=== PATIENT | female | born 1950 | race African-American/Black ===

== ENCOUNTER 2017-05-13 11:01 | Emergency (ER) | payer OTHER, MEDICAID ==
[~2017-05-13 11:01] MED LIST: ALLO300T2 PO; ASPI81TA45 PO; CRES10TA PO; GABA100C4 PO; LORTA5 PO; METH750T2 PO; METO50TA PO; MOBI15TA PO; NORV10TA PO
[2017-05-13 11:04] VITALS: BP 205/81; PULSE 96; RESP 16; TEMP 98.3; O2SAT 98
--- NOTE | 2017-05-13 11:26 | PD ---
HPI Chief Complaint: Flank/Kidney Pain Time Seen by Provider: 11:26 Travel History International Travel<30 days: No Contact w/Intl Traveler<30days: No Traveled to known affect area: No History of Present Illness HPI 66-year-old Afro-Citizen Of [place] female presents Department with right-sided flank pain for the past 3 days. Patient states no fever, chills, nausea, vomiting, or diarrhea. Patient states her urine she may be somewhat less but does denies dysuria or vaginal discharge. Patient states the pain is worse with certain movements and deep breath. It is localized to the right flank. Patient states her pain is 5/10. She states it's worse with movement as well as not being able to lay on it when sleeping. She denies any rash to the area. She states it is not worse with eating. She has no significant drinking history or history of biliary colic or gallbladder disease. Patient does have a history of renal insufficiency in the past. Patient is allergic to sulfa. PFSH Past Medical History Arthritis: No Asthma: No Autoimmune Disease: No Blood Disorders: No Anxiety: No Depression: No Heart Rhythm Problems: No Cancer: No Cardiovascular Problems: Yes (HNT) High Cholesterol: Yes Chemotherapy: No Chest Pain: No Congestive Heart Failure: No COPD: No Cerebrovascular Accident: Yes Diabetes: Yes Diminished Hearing: No Endocrine: No GERD: No Gout: Yes Genitourinary: No Headaches: Yes Hiatal Hernia: No Hypertension: Yes Immune Disorder: No Kidney Stones: No Musculoskeletal: No Neurologic: No Psychiatric: No Reproductive: No Respiratory: No Immunizations Current: Yes Migraines: No Myocardial Infarction: No Radiation Therapy: No Renal Failure: No Seizures: No Sickle Cell Disease: No Sleep Apnea: No Thyroid Disease: No Ulcer: No Menopausal: Yes Tubal Ligation: Yes Past Surgical History Abdominal Surgery: No AICD: No Arteriovenous Shunt: No Cardiac Surgery: No Ear Surgery: No Endocrine Surgery: No Eye Surgery: No Genitourinary Surgery: No Gynecologic Surgery: Yes Joint Replacement: No Oral Surgery: No Pacemaker: No Thoracic Surgery: No Other Surgery: Yes Social History Alcohol Use: No Tobacco Use: No Substance Use: No Allergies-Medications (Allergen,Severity, Reaction): Coded Allergies: Sulfa (Verified Allergy, Severe, 05/13/17) Reported Meds & Prescriptions Reported Meds & Active Scripts Active Reported Crestor (Rosuvastatin Calcium) 40 Mg Tab 40 Mg PO HS Amlodipine (Amlodipine Besylate) 10 Mg Tab 10 Mg PO DAILY Metoprolol Tartrate 25 Mg Tab 25 Mg PO BID Aspirin 81 Mg Chew 81 Mg CHEW DAILY Allopurinol 300 Mg Tab 300 Mg PO DAILY Review of Systems Except as stated in HPI: all other systems reviewed are Neg General / Constitutional: No: Fever, Chills Eyes: No: Visual changes HENT: No: Headaches Cardiovascular: No: Chest Pain or Discomfort, Palpitations, Irregular Rhythm, Tachycardia, Diaphoresis, Dyspnea on exertion Respiratory: No: Cough, Shortness of Breath, Wheezing Gastrointestinal: Positive: Nausea, Abdominal Pain (see history present illness.), No: Vomiting, Diarrhea Genitourinary: Positive: Flank Pain, No: Urgency, Frequency, Dysuria, Discharge Musculoskeletal: No: Pain Skin: No Rash Neurologic: No: Weakness Psychiatric: No: Depression Endocrine: No: Polydipsia Hematologic/Lymphatic: No: Easy Bruising Physical Exam Narrative GENERAL: Patient appears normal and in no acute distress. SKIN: Warm and dry. Normal color. Normal turgor. No rash. HEAD: Atraumatic. Normocephalic. EYES: Pupils equal and round. No scleral icterus. No injection or drainage. ENT: No nasal bleeding or discharge. Mucous membranes pink and moist. Pharynx is clear. Airway is patent. NECK: Trachea midline. Supple and nontender. CARDIOVASCULAR: Regular rate and rhythm. RESPIRATORY: No accessory muscle use. Clear to auscultation. Breath sounds equal bilaterally. GASTROINTESTINAL: Abdomen soft, mild to moderate right upper quadrant discomfort without specific point tenderness, nondistended. Hepatic and splenic margins not palpable. No CVA tenderness. MUSCULOSKELETAL: Extremities without clubbing, cyanosis, or edema. No obvious deformities. NEUROLOGICAL: Awake and alert. No obvious cranial nerve deficits. Motor grossly within normal limits. Five out of 5 muscle strength in the arms and legs. Normal speech. PSYCHIATRIC: Appropriate mood and affect; insight and judgment normal. Data Data Last Documented VS Vital Signs Date Time Temp Pulse Resp B/P Pulse Ox O2 Delivery O2 Flow Rate FiO2 05/13/17 11:41 18 05/13/17 11:04 98.3 96 205/81 98 Orders Complete Blood Count With Diff (05/13/17 11:32) Comprehensive Metabolic Panel (05/13/17 11:32) Lipase (05/13/17 11:32) Lactic Acid (05/13/17 11:32) Prothrombin Time / Inr (Pt) (05/13/17 11:32) Act Partial Throm Time (Ptt) (05/13/17 11:32) Urinalysis - C+S If Indicated (05/13/17 11:32) Ct Abd/Pel W/O Iv Contrast (05/13/17 11:32) Iv Access Insert/Monitor (05/13/17 11:32) Ecg Monitoring (05/13/17 11:32) Oximetry (05/13/17 11:32) NPO (05/13/17 11:32) Sodium Chlor 0.9% 1000 Ml Inj (Ns 1000 M (05/13/17 11:32) Sodium Chloride 0.9% Flush (Ns Flush) (05/13/17 11:45) Electrocardiogram (05/13/17 11:32) Labs Laboratory Tests Test 05/13/17 05/13/17 12:15 13:05 Urine Color YELLOW Urine Turbidity CLEAR Urine pH 6.0 Urine Specific [place] 1.012 Urine Protein NEG mg/dL Urine Glucose (UA) NEG mg/dL Urine Ketones NEG mg/dL Urine Occult Blood NEG Urine Nitrite NEG Urine Bilirubin NEG Urine Urobilinogen LESS THAN 2.0 MG/DL Urine Leukocyte Esterase LARGE Urine RBC LESS THAN 1 /hpf Urine WBC 7 /hpf Urine Squamous Epithelial 1 /hpf Cells Urine Transitional Epithelial <1 /hpf Cells Microscopic Urinalysis Comment CULT NOT INDICATED White Blood Count 8.0 TH/MM3 Red Blood Count 4.44 MIL/MM3 Hemoglobin 12.6 GM/DL Hematocrit 38.7 % Mean Corpuscular Volume 87.2 FL Mean Corpuscular Hemoglobin 28.3 PG Mean Corpuscular Hemoglobin 32.5 % Concent Red Cell Distribution Width 14.6 % Platelet Count 282 TH/MM3 Mean Platelet Volume 7.9 FL Neutrophils (%) (Auto) 60.9 % Lymphocytes (%) (Auto) 30.1 % Monocytes (%) (Auto) 7.6 % Eosinophils (%) (Auto) 0.9 % Basophils (%) (Auto) 0.5 % Neutrophils # (Auto) 4.9 TH/MM3 Lymphocytes # (Auto) 2.4 TH/MM3 Monocytes # (Auto) 0.6 TH/MM3 Eosinophils # (Auto) 0.1 TH/MM3 Basophils # (Auto) 0.0 TH/MM3 CBC Comment DIFF FINAL Differential Comment Prothrombin Time 10.4 SEC Prothromb Time International 0.9 RATIO Ratio Activated Partial 27.7 SEC Thromboplast Time Sodium Level 140 MEQ/L Potassium Level 3.9 MEQ/L Chloride Level 106 MEQ/L Carbon Dioxide Level 28.6 MEQ/L Anion Gap 5 MEQ/L Blood Urea Nitrogen 13 MG/DL Creatinine 0.76 MG/DL Estimat Glomerular Filtration 92 ML/MIN Rate Random Glucose 105 MG/DL Lactic Acid Level 1.8 mmol/L Calcium Level 9.6 MG/DL Total Bilirubin 0.2 MG/DL Aspartate Amino Transf 17 U/L (AST/SGOT) Alanine Aminotransferase 19 U/L (ALT/SGPT) Alkaline Phosphatase 71 U/L Total Protein 7.7 GM/DL Albumin 3.4 GM/DL Lipase 164 U/L MDM Medical Decision Making Medical Screen Exam Complete: Yes Emergency Medical Condition: Yes Differential Diagnosis Right flank pain. Biliary colic. Pancreatitis. Pneumonia. Cardiac syndrome. Early shingles. Narrative Course Patient is medically stable at time of exam. Patient requests no medications for pain at this time. Labs ordered including CBC, CMP, cardiac panel, lipase, lactic acid, urinalysis. Chest x-ray and EKG is ordered. CT of the abdomen is ordered without IV or oral contrast. Patient is given thousand and also normal saline bolus. CT the abdomen is completely normal per radiologist. There is no acute findings to explain the patient's current right flank pain per radiologist. Urinalysis is normal except for large leukocyte esterase with 7 white blood cells per high-power field. CBC is unremarkable. CMP and lactic acid is normal. Coagulation studies are normal. Patient is discussed with Dr. Fenton and examined with her. It is felt the patient probably has a neuralgia versus muscle wall pain possibly from early shingles and if not materialized and a rash at this time. Patient is felt stable to be discharged home with prescription for Valtrex to be started if the rash develops in the next several days. Patient is given tramadol 50 mg one every 6 hours when necessary pain #20 to be used as needed for pain in the next several days. Patient should follow with her primary care physician as discussed. Patient can return to emergency Department with worsening symptoms if necessary. Diagnosis Primary Impression: Acute right flank pain Additional Impressions: Shingles Qualified Code: B02.9 - Herpes zoster without complication Neuralgia of flank Qualified Code: G57.91 - Neuralgia of flank, right Referrals: Primary Care Physician Patient Instructions: General Instructions, Shingles (ED), Shingles Vaccine (ED ) Additional Instructions: It is felt the patient probably has a neuralgia versus muscle wall pain possibly from early shingles and if not materialized and a rash at this time. Patient is felt stable to be discharged home with prescription for Valtrex to be started if the rash develops in the next several days. Patient is given tramadol 50 mg one every 6 hours when necessary pain #20 to be used as needed for pain in the next several days. Patient should follow with her primary care physician as discussed. Patient can return to emergency Department with worsening symptoms if necessary. Med/Other Pt SpecificInfo: Prescription(s) given Disposition: 01 DISCHARGE HOME Condition: Stable Serafin Aguiar May 13, 2017 11:26
[2017-05-13] MEDS ORDERED: SODIUM CHLOR 0.9% 1000 ML INJ 1,000 ML IV SCH (11:32)
[2017-05-13 11:45] VITALS: BP 133/86; PULSE 91; RESP 18; O2SAT 98
[2017-05-13] MEDS ORDERED: SODIUM CHLORIDE 0.9% FLUSH 10 ML FLUSH IV FLUSH PRN (11:45)
[2017-05-13] MEDS ORDERED: ALLO300T2 PO (11:49)
[2017-05-13] MEDS ORDERED: AMLO10TA2 PO (11:49)
[2017-05-13] MEDS ORDERED: ASPI81CH CHEW (11:49)
[2017-05-13] MEDS ORDERED: METO25TA3 PO (11:49)
[2017-05-13] MEDS ORDERED: ROSU40 PO (11:49)
[2017-05-13 12:47] LABS: BLOOD, URINE NEG (NEG); COMMENT (UR) CULT NOT INDICATED; CULTURE IF INDICATED CULT NOT INDICATED; GLUCOSE,URINE NEG (NEG); KETONE, URINE NEG (NEG); NITRITE,URINE NEG (NEG); SQUAMOUS EPITHELIAL CELL URINE 1 /hpf (0-5); TRANSITIONAL EPI CELLS, URINE <1 /hpf; URINE COLOR YELLOW (YELLW/STRAW)
--- NOTE | 2017-05-13 12:48 | RADRPT ---
EXAM DATE/TIME: 05/13/2017 12:21 [facility] COMPARISON: No previous studies available for comparison. INDICATIONS : Right flank pain today. ORAL CONTRAST: No oral contrast ingested. RADIATION DOSE: 24.9 CTDIvol (mGy) MEDICAL HISTORY : Hypertension. Stroke SURGICAL HISTORY : None. ENCOUNTER: Initial ACUITY: 1 day PAIN SCALE: 5/10 LOCATION: Right flank TECHNIQUE: Volumetric scanning of the abdomen and pelvis was performed. Using automated exposure control and ad justment of the mA and/or kV according to patient size, radiation dose was kept as low as reasonably achievable to obtain optimal diagnostic quality images. DICOM format image data is available electro nically for review and comparison. FINDINGS: LOWER LUNGS: The visualized lower lungs are clear except for a small calcified granuloma in the right base. LIVER: Homogeneous density without lesion. There is no dilation of the biliary tree. No calcified gallston es. SPLEEN: Normal size without lesion. PANCREAS: Within normal limits. KIDNEYS: Normal in size and shape. There is no mass, stone, or hydronephrosis. ADRENAL GLANDS: Within normal limits. VASCULAR: There is no aortic aneurysm. BOWEL/MESENTERY: The stomach, small bowel, and colon demonstrate no acute abnormality. A few scattered colonic divert icula without diverticulitis. The appendix is radiographically normal. There is no free intraperitone al air or fluid. ABDOMINAL WALL: Within normal limits. RETROPERITONEUM: There is no lymphadenopathy. BLADDER: No wall thickening or mass. REPRODUCTIVE: Myometrial calcification in the lower uterine segment/cervix on the right. Otherwise intact. INGUINAL: There is no lymphadenopathy or hernia. MUSCULOSKELETAL: Degenerative disc disease in the thoracolumbar spine. There is also some sclerosis on the iliac side of the SI joints bilaterally with marginal spurring. CONCLUSION: 1. I do not see an acute intraperitoneal or pelvic process to explain current clinical symptoms. Spec ifically, the appendix and gallbladder are radiographically normal and there are no renal/ureteral ca lculi. 2. Old granulomatous disease. 3. Minimal diverticular disease without diverticulitis. 4. Benign calcification in the right side of the lower uterine segment/cervix. Matthew Luciano MD on May 13, 2017 at 12:36 Board Certified Radiologist. This report was verified electronically.
[2017-05-13 13:25] LABS: AUTOMATED NEUTROPHIL # 4.9 TH/MM3 (1.8-7.7); BASOPHIL % 0.5 % (0.0-2.0); EOSINOPHIL # 0.1 TH/MM3 (0-0.4); EOSINOPHIL % 0.9 % (0.0-4.0); HEMATOCRIT 38.7 % (35.0-46.0); HEMO FLAGS DIFF FINAL; LYMPH % 30.1 % (9.0-44.0); LYMPHOCYTE # 2.4 TH/MM3 (1.0-4.8); MEAN CELL VOLUME 87.2 FL (80.0-100.0); MEAN CORPUSCULAR HEMOGLOBIN 28.3 PG (27.0-34.0); MEAN CORPUSCULAR HGB CONC 32.5 % (32.0-36.0); MONO % 7.6 % (0.0-8.0); NEUT % 60.9 % (16.0-70.0); PLATELET COUNT 282 TH/MM3 (150-450); RED BLOOD COUNT 4.44 MIL/MM3 (4.00-5.30); RED CELL DISTRIBUTION WIDTH 14.6 % (11.6-17.2)
[2017-05-13 13:35] LABS: APTT (PATIENT) 27.7 SEC (24.3-30.1); INTERNATIONAL NORMALIZED RATIO 0.9 RATIO; PROTHROMBIN TIME - PATIENT 10.4 SEC (9.8-11.6)
[2017-05-13 13:42] LABS: ANION GAP 5 MEQ/L (5-15); AST (GOT) 17 U/L (15-37); BICARBONATE 28.6 MEQ/L (21.0-32.0); BLOOD UREA NITROGEN 13 MG/DL (7-18); CHLORIDE 106 MEQ/L (98-107); GLOMERULAR FILTRATION RATE 92 ML/MIN (>89); POTASSIUM 3.9 MEQ/L (3.5-5.1); SODIUM (NA) 140 MEQ/L (136-145)
[2017-05-13 13:45] LABS: ALKALINE PHOSPHATASE 71 U/L (45-117); ALT (GPT) 19 U/L (10-53); TOTAL BILIRUBIN ADULT 0.2 MG/DL (0.2-1.0)
[2017-05-13] MEDS ORDERED: VALT1TAB PO (14:00)
[2017-05-13] MEDS ORDERED: TRAM50TA PO (14:00)
[2017-05-13 14:59] VITALS: BP 144/87
--- NOTE | 2017-05-14 13:30 | EKG ---
Date Performed: 05/13/2017 Time Performed: 12:49:38 PTAGE: 66 years EKG: Sinus rhythm POSSIBLE LEFT ATRIAL ENLARGEMENT LEFT VENTRICULAR HYPERTROPHY AND ST-T CHANGE ABNORMAL ECG Compared to prior tracing no significant change PREVIOUS TRACING : 05/04/2016 10.34 DOCTOR: Deepak Ferrari Interpretating Date/Time 05/14/2017 13:27:27
== END 2017-05-13 15:00 | disposition home or self-care (01) ==
LOC: NEPE 11:01
DX: R10.9 Unspecified abdominal pain (principal); B02.9 Zoster without complications; G57.91 Unspecified mononeuropathy of right lower limb; I10 Essential (primary) hypertension; E11.9 Type 2 diabetes mellitus without complications; E78.00 Pure hypercholesterolemia, unspecified; M10.9 Gout, unspecified; Z86.73 Personal history of transient ischemic attack (TIA), and cerebral infarction without residual deficits; Z79.899 Other long term (current) drug therapy; Z79.82 Long term (current) use of aspirin
CPT/HCPCS: 74176; 80053; 81001; 83605; 83690; 85025; 85610; 85730; 93005

== ENCOUNTER 2017-08-28 12:01 | Observation (INO) | payer OTHER, MEDICAID ==
[2017-08-28] VITALS (10 sets, daily range): BP systolic 136–211; BP diastolic 64–93; PULSE 71–99; RESP 15–21; TEMP 98.1–98.2; O2SAT 95–98
[~2017-08-28 12:01] MED LIST changes: +AMLO10TA2 PO; +ASPI81CH CHEW; -ASPI81TA45 PO; -CRES10TA PO; -GABA100C4 PO; -LORTA5 PO; -METH750T2 PO; +METO25TA3 PO; -METO50TA PO; -MOBI15TA PO; -NORV10TA PO; +ROSU40 PO; +TRAM50TA PO; +VALT1TAB PO
--- NOTE | 2017-08-28 12:20 | PD ---
Physical Exam Date Seen by Provider: Aug 28, 2017 Time Seen by Provider: 12:17 Narrative 66-year-old Afro-[place] female presents to emergency department with ongoing bilateral lower extremity edema which is not improving with recent changes to Lasix 20 mg daily. Patient has been seen by her PCP but she feels it is not helping her. She denies fever, chills, shortness of breath, or lower extremity pain. She is taking her Lasix 20 mg although she states allergies to sulfa. She denies any wounds to the lower extremities, redness, or heat. Data Data Last Documented VS Vital Signs Date Time Temp Pulse Resp B/P (MAP) Pulse Ox O2 Delivery O2 Flow Rate FiO2 08/28/17 12:04 98.2 82 15 210/93 (132) 98 MDM Medical Record Reviewed: Yes Supervised Visit with JERALD: Yes Narrative Course Patient appears medically stable at time of exam. Vital show systolic hypertension, but the patient states she has white coat syndrome. Patient is stable to await mid bed placement. Condition: Stable Serafin Aguiar Aug 28, 2017 12:20
--- NOTE | 2017-08-28 12:59 | PD ---
HPI Chief Complaint: Edema Time Seen by Provider: 12:51 Travel History International Travel<30 days: No Contact w/Intl Traveler<30days: No Traveled to known affect area: No History of Present Illness HPI 66-year-old female presents with swelling to her lower legs with intermittent chest pain and shortness of breath. She denies any active chest pain at this time. She states she feels worse when she moves around. She denies other modifying factors. She states her primary has ordered an echocardiogram which she now has scheduled for Sunday but given she feels like her symptoms are getting worse she elected to come in. Quality is swollen. Location is bilateral lower extremities. She states she took a baby aspirin. She denies prior stress test or cardiac workup in the past. She is not follow with a process pumper. She denies other concurrent complaints. PFSH Past Medical History Arthritis: No Asthma: No Autoimmune Disease: No Blood Disorders: No Anxiety: No Depression: No Heart Rhythm Problems: No Cancer: No High Cholesterol: Yes Chemotherapy: No Chest Pain: No Congestive Heart Failure: No COPD: No Cerebrovascular Accident: Yes Diabetes: Yes Diminished Hearing: No Endocrine: No GERD: No Gout: Yes Genitourinary: No Headaches: Yes Hiatal Hernia: No Hypertension: Yes Immune Disorder: No Kidney Stones: No Musculoskeletal: No Neurologic: No Psychiatric: No Reproductive: No Respiratory: No Immunizations Current: Yes Migraines: No Myocardial Infarction: No Radiation Therapy: No Renal Failure: No Seizures: No Sickle Cell Disease: No Sleep Apnea: No Thyroid Disease: No Ulcer: No Menopausal: Yes Tubal Ligation: Yes Past Surgical History Abdominal Surgery: No AICD: No Arteriovenous Shunt: No Cardiac Surgery: No Ear Surgery: No Endocrine Surgery: No Eye Surgery: No Genitourinary Surgery: No Gynecologic Surgery: Yes Joint Replacement: No Oral Surgery: No Pacemaker: No Thoracic Surgery: No Other Surgery: Yes Social History Alcohol Use: No Tobacco Use: No Substance Use: No Allergies-Medications (Allergen,Severity, Reaction): Coded Allergies: Sulfa (Sulfonamide Antibiotics) (Unverified Allergy, Severe, 08/28/17) Reported Meds & Prescriptions Reported Meds & Active Scripts Active Reported Lasix (Furosemide) 40 Mg Tab 40 Mg PO DAILY Crestor (Rosuvastatin Calcium) 40 Mg Tab 40 Mg PO HS Amlodipine (Amlodipine Besylate) 10 Mg Tab 10 Mg PO DAILY Metoprolol Tartrate 25 Mg Tab 25 Mg PO BID Aspirin 81 Mg Chew 81 Mg CHEW DAILY Allopurinol 300 Mg Tab 300 Mg PO DAILY Review of Systems Except as stated in HPI: all other systems reviewed are Neg Physical Exam Narrative GENERAL: Well-nourished, well-developed patient. SKIN: Warm and dry. HEAD: Normocephalic and atraumatic. EYES: No injection or drainage. ENT: No nasal drainage noted. NECK: Supple, trachea midline. CARDIOVASCULAR: Regular rate and rhythm RESPIRATORY: Breath sounds equal bilaterally at apices. No accessory muscle use. GASTROINTESTINAL: Abdomen soft, non-tender, nondistended. EXTREMITIES: Pain edema noted to bilateral lower extremities to mid tibia, no calf pain NEUROLOGICAL: Awake and alert. Motor and sensory grossly within normal limits. Normal speech. Data Data Last Documented VS Vital Signs Date Time Temp Pulse Resp B/P (MAP) Pulse Ox O2 Delivery O2 Flow Rate FiO2 08/28/17 14:28 71 20 211/81 (124) 95 Room Air 08/28/17 12:04 98.2 Orders Orders Electrocardiogram (08/28/17 ) Electrocardiogram (08/28/17 12:51) B-Type Natriuretic Peptide (08/28/17 12:51) Ckmb (Isoenzyme) Profile (08/28/17 12:51) Complete Blood Count With Diff (08/28/17 12:51) Comprehensive Metabolic Panel (08/28/17 12:51) Magnesium (Mg) (08/28/17 12:51) Prothrombin Time / Inr (Pt) (08/28/17 12:51) Act Partial Throm Time (Ptt) (08/28/17 12:51) Troponin I (08/28/17 12:51) Chest, Single Ap (08/28/17 12:51) Ecg Monitoring (08/28/17 12:51) Bilateral Bp Monitoring (08/28/17 12:51) Iv Access Insert/Monitor (08/28/17 12:51) Oximetry (08/28/17 12:51) Aspirin Chew (Aspirin Chew) (08/28/17 13:00) Sodium Chloride 0.9% Flush (Ns Flush) (08/28/17 13:00) Nitroglycerin Sl (Nitrostat Sl) (08/28/17 13:00) CKMB (08/28/17 15:45) CKMB% (08/28/17 15:45) Admit Order (Ed Use Only) (08/28/17 16:57) Labs Laboratory Tests Test 08/28/17 13:20 08/28/17 15:45 White Blood Count 7.1 TH/MM3 Red Blood Count 4.66 MIL/MM3 Hemoglobin 13.4 GM/DL Hematocrit 40.8 % Mean Corpuscular Volume 87.6 FL Mean Corpuscular Hemoglobin 28.9 PG Mean Corpuscular Hemoglobin Concent 33.0 % Red Cell Distribution Width 15.6 % Platelet Count 302 TH/MM3 Mean Platelet Volume 8.3 FL Neutrophils (%) (Auto) 51.2 % Lymphocytes (%) (Auto) 39.9 % Monocytes (%) (Auto) 5.7 % Eosinophils (%) (Auto) 2.6 % Basophils (%) (Auto) 0.6 % Neutrophils # (Auto) 3.6 TH/MM3 Lymphocytes # (Auto) 2.8 TH/MM3 Monocytes # (Auto) 0.4 TH/MM3 Eosinophils # (Auto) 0.2 TH/MM3 Basophils # (Auto) 0.0 TH/MM3 CBC Comment DIFF FINAL Differential Comment B-Type Natriuretic Peptide 16 PG/ML Prothrombin Time 10.6 SEC Prothromb Time International Ratio 1.0 RATIO Activated Partial Thromboplast Time 26.5 SEC Blood Urea Nitrogen 17 MG/DL Creatinine 0.74 MG/DL Random Glucose 87 MG/DL Total Protein 7.7 GM/DL Albumin 3.6 GM/DL Calcium Level 9.4 MG/DL Magnesium Level 2.1 MG/DL Alkaline Phosphatase 84 U/L Aspartate Amino Transf (AST/SGOT) 18 U/L Alanine Aminotransferase (ALT/SGPT) 31 U/L Total Bilirubin 0.3 MG/DL Sodium Level 140 MEQ/L Potassium Level 4.4 MEQ/L Chloride Level 103 MEQ/L Carbon Dioxide Level 30.4 MEQ/L Anion Gap 7 MEQ/L Estimat Glomerular Filtration Rate 95 ML/MIN Total Creatine Kinase 132 U/L Creatine Kinase MB 5.6 NG/ML Troponin I 0.02 NG/ML MDM Medical Decision Making Medical Screen Exam Complete: Yes Emergency Medical Condition: Yes Medical Record Reviewed: Yes (past history confirmed) Interpretation(s) EKG is normal sinus rhythm at 80, diffuse T-wave inversion inferior laterally, no ST depression, mild elevation in lead 3 CBC & BMP Diagram 08/28/17 13:20 08/28/17 15:45 Total Protein 7.7, Albumin 3.6, Calcium Level 9.4, Magnesium Level 2.1, Alkaline Phosphatase 84, Aspartate Amino Transf (AST/SGOT) 18, Alanine Aminotransferase (ALT/SGPT) 31, Total Bilirubin 0.3 Last 24 hours Impressions Chest X-Ray 08/28/17 1251 Signed Impressions: Service Date/Time: Monday, August 28, 2017 13:07 - CONCLUSION: Stable mild cardiomegaly. Hari Dahl Jr., MD Differential Diagnosis CHF, renal failure, [place].... Narrative Course Will check blood work, chest x-ray, EKG and dose with aspirin and nitroglycerin and reevaluate On recheck patient is feeling better. Patient agrees to observation for further cardiac monitoring, given aspirin here, bp improved Diagnosis Primary Impression: Chest pain Qualified Codes: R07.9 - Chest pain, unspecified Admitting Information Admitting Physician Requests: Observation Condition: Stable Hiwot Pena MD Aug 28, 2017 12:59
[2017-08-28] MEDS ORDERED: SODIUM CHLORIDE 0.9% FLUSH 10 ML FLUSH IVF PRN (13:00)
[2017-08-28] MEDS ORDERED: ASPIRIN 81 MG CHEW TAB PO ONE (13:00)
[2017-08-28] MEDS ORDERED: NITROGLYCERIN 0.4 MG SL 25 TABS/BTL SL ONE (13:00)
[2017-08-28] MEDS ORDERED: FURO1TAB60 PO (13:21)
--- NOTE | 2017-08-28 13:21 | RADRPT ---
EXAM DATE/TIME: 08/28/2017 13:07 [facility] COMPARISON: CHEST SINGLE AP, May 04, 2016, 11:09. INDICATIONS : Chest pain and swelling in bilateral legs. MEDICAL HISTORY : Diabetes mellitus type II. Hypertension Stroke. SURGICAL HISTORY : Tubal ligation. ENCOUNTER: Initial ACUITY: 1 day PAIN SCORE: 5/10 LOCATION: Bilateral chest FINDINGS: A single view of the chest demonstrates the lungs to be symmetrically aerated without evidence of mas s, infiltrate or effusion. Stable mild cardiomegaly. Osseous structures are intact. CONCLUSION: Stable mild cardiomegaly. Hari Dahl Jr., MD on August 28, 2017 at 13:18 Board Certified Radiologist. This report was verified electronically.
[2017-08-28 13:48] LABS: AUTOMATED NEUTROPHIL # 3.6 TH/MM3 (1.8-7.7); BASOPHIL % 0.6 % (0.0-2.0); EOSINOPHIL # 0.2 TH/MM3 (0-0.4); EOSINOPHIL % 2.6 % (0.0-4.0); HEMATOCRIT 40.8 % (35.0-46.0); HEMO FLAGS DIFF FINAL; LYMPH % 39.9 % (9.0-44.0); LYMPHOCYTE # 2.8 TH/MM3 (1.0-4.8); MEAN CELL VOLUME 87.6 FL (80.0-100.0); MEAN CORPUSCULAR HEMOGLOBIN 28.9 PG (27.0-34.0); MONO % 5.7 % (0.0-8.0); NEUT % 51.2 % (16.0-70.0); PLATELET COUNT 302 TH/MM3 (150-450); RED BLOOD COUNT 4.66 MIL/MM3 (4.00-5.30); RED CELL DISTRIBUTION WIDTH 15.6 % (11.6-17.2); WHITE BLOOD COUNT 7.1 TH/MM3 (4.0-11.0)
[2017-08-28 16:21] LABS: APTT (PATIENT) 26.5 SEC (24.3-30.1); PROTHROMBIN TIME - PATIENT 10.6 SEC (9.8-11.6)
[2017-08-28 16:35] LABS: ANION GAP 7 MEQ/L (5-15); AST (GOT) 18 U/L (15-37); BICARBONATE 30.4 MEQ/L (21.0-32.0); BLOOD UREA NITROGEN 17 MG/DL (7-18); CHLORIDE 103 MEQ/L (98-107); GLOMERULAR FILTRATION RATE 95 ML/MIN (>89); MAGNESIUM 2.1 MG/DL (1.5-2.5); POTASSIUM 4.4 MEQ/L (3.5-5.1); SODIUM (NA) 140 MEQ/L (136-145)
[2017-08-28 16:39] LABS: ALKALINE PHOSPHATASE 84 U/L (45-117); ALT (GPT) 31 U/L (10-53); CREATINE KINASE 132 U/L (26-192); TOTAL BILIRUBIN ADULT 0.3 MG/DL (0.2-1.0)
[2017-08-28 16:52] LABS: CKMB 5.6 NG/ML (0.5-3.6)
[2017-08-28] MEDS ORDERED: IOHEXOL 350 MG/ML 100 ML BTL (for Cath Lab) OTHER ONE (16:59)
[2017-08-28] MEDS ORDERED: ACETAMINOPHEN 500 MG CPLT PO PRN (17:15)
[2017-08-28] MEDS ORDERED: NITROGLYCERIN 0.4 MG SL 25 TABS/BTL SL PRN (17:15)
[2017-08-28] MEDS ORDERED: ONDANSETRON HCL 4 MG/2 ML VIAL IV PUSH PRN (17:15)
--- NOTE | 2017-08-28 18:42 | HHI.HP ---
[facility] Primary Care Physician Dr. Salas Melo Chief Complaint Edema and chest pressure History of Present Illness 66-year-old female with history of hypertension, hyperlipidemia, diabetes, and CVA presents to emergency room for worsening bilateral lower leg edema and intermittent chest pressure. Bilateral lower leg edema progressively worse over the past 2 months. She has follow with her PCP regarding this and started on furosemide 20 mg daily. Daughter states PCP wanted to increase furosemide to 20 mg twice a day but neither her or her mother agreed with idea. Echocardiogram scheduled for 09/03/17. Denies any weight gain or sputum production. Chest pressure onset 2 months. Location substernal characterized as pressure. Severity 11/14. No radiation of pressure or discomfort. Duration last 1-2 minutes. Associated symptoms include dyspnea. Denies nausea, vomiting , or diaphoresis. No known precipitating factors, occurs with or without activity. No known relieving factors. Denies similar pain in the past. Review of Systems General: No fatigue,weakness, fever, chills, recent illness, or change in appetite. Has been her general state of health other than as stated above. HEENT: No LUTHER, history of bilateral cataracts, no dysphasia CV: As stated above. No current chest pain or pressure. No palpitations or dizziness. RESP: No SOB, cough, wheeze, hemoptysis, sputum production, or recent URI. GI: No nausea, vomiting, or bowel changes. Chronic constipation stating it is not uncommon for her to have one BM weekly. No pain or distension. No unintentional weight gain. Recently lost 3 pounds. : No dysuria, urgency, frequency, or history of kidney stones EXT: As stated above, progressive worsening bilateral lower leg edema. MS: No discomfort, change in ROM, recent injury, or trauma. Ambulated with a walker. 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 NEURO: No change in memory, LOC, or motor/sensory deficits. States PCP wanted to start medication for her memory, but she denies any memory changes. PSYCH: No anxiety, depression, or situational stress. States PCP wanted to start medications for depression, but she denies any feelings of depression. SKIN: No rashes, no concerning lesions Past Family Social History Allergies: Coded Allergies: Sulfa (Sulfonamide Antibiotics) (Unverified Allergy, Severe, 08/28/17) Past Medical History Hypertension, hyperlipidemia, [id number] weakness (2013), gout Past Surgical History Bilateral cataract surgery, tubal ligation Reported Medications Reported Meds & Active Scripts Active Reported Lasix (Furosemide) 20 Mg Tab PO DAILY Crestor (Rosuvastatin Calcium) 40 Mg Tab 40 Mg PO HS Amlodipine (Amlodipine Besylate) 10 Mg Tab 10 Mg PO DAILY Metoprolol Tartrate 25 Mg Tab 25 Mg PO BID Aspirin 81 Mg Chew 81 Mg CHEW DAILY Allopurinol 300 Mg Tab 300 Mg PO DAILY Active Ordered Medications Current Medications Medications (Trade) Dose Ordered Sig/Bertha Route Start Time Stop Time Status Last Admin (NS Flush) 2 ml UNSCH PRN IVF 08/28/17 13:00 (NS Flush) 2 ml BID IV FLUSH 08/28/17 21:00 (Tylenol) 500 mg Q4H PRN PO 08/28/17 17:15 (Zofran Inj) 4 mg Q6H PRN IV PUSH 08/28/17 17:15 (Nitrostat Sl) 0.4 mg Q5M PRN SL 08/28/17 17:15 (Aspirin) 325 mg DAILY PO 08/29/17 09:00 Family History Noncontributory for early onset cardiovascular disease. Social History Known hypertension, hyperlipidemia, and diabetes. Currently not on medication for her diabetes daily she was unable to tolerate metformin. No known coronary artery disease. Former smoker 1 1/2 pack/daily. Quit 30 years ago. Denies any alcohol or illegal drug use. Endorses a sedentary lifestyle. Ambulates with a walker. Lives alone. Past cardiac testing No recent stress testing. Never required a cardiac catheterization. Physical Exam Vital Signs Vital Signs Date Time Temp Pulse Resp B/P (MAP) Pulse Ox O2 Delivery O2 Flow Rate FiO2 08/28/17 17:23 90 21 146/67 (93) 96 Room Air 08/28/17 17:17 97 08/28/17 14:28 71 20 211/81 (124) 95 Room Air 08/28/17 13:00 98 Room Air 08/28/17 12:20 167/74 (105) 08/28/17 12:04 98.2 82 15 210/93 (132) 98 Physical Exam GENERAL: Alert WN, WD, NAD, pleasant, , obese female HEAD: NC, AT NECK: Supple, no masses, trachea midline CV: RRR, 2/6 systolic murmur. No rub, no gallop, no JVD, S1-S2 no S3-S4. No carotid bruits. RESP: Clear lungs throughout bilateral, no crackles, wheeze, rhonchi, symmetrical chest rise, nonlabored, able to speak in full sentences ABD: Soft, NT, ND BACK: No scoliosis EXT: Pulses +24, +2 pitting bilateral lower edema MS: Normal tone 4 extremities, no obvious deformities, full range of motion, motor strength 4/5 right lower extremity. NEURO: CN II through CN XII grossly intact. PSYCH: A+O 3, pleasant affect, appropriate speech, appropriate mood and affect , insight and judgment SKIN: Normal turgor, normal texture, no lesions, no rashes, sluggish cap refill Laboratory Laboratory Tests Test 08/28/17 13:20 08/28/17 15:45 White Blood Count 7.1 Red Blood Count 4.66 Hemoglobin 13.4 Hematocrit 40.8 Mean Corpuscular Volume 87.6 Mean Corpuscular Hemoglobin 28.9 Mean Corpuscular Hemoglobin Concent 33.0 Red Cell Distribution Width 15.6 Platelet Count 302 Mean Platelet Volume 8.3 Neutrophils (%) (Auto) 51.2 Lymphocytes (%) (Auto) 39.9 Monocytes (%) (Auto) 5.7 Eosinophils (%) (Auto) 2.6 Basophils (%) (Auto) 0.6 Neutrophils # (Auto) 3.6 Lymphocytes # (Auto) 2.8 Monocytes # (Auto) 0.4 Eosinophils # (Auto) 0.2 Basophils # (Auto) 0.0 CBC Comment DIFF FINAL Differential Comment B-Type Natriuretic Peptide 16 Prothrombin Time 10.6 Prothromb Time International Ratio 1.0 Activated Partial Thromboplast Time 26.5 Blood Urea Nitrogen 17 Creatinine 0.74 Random Glucose 87 Total Protein 7.7 Albumin 3.6 Calcium Level 9.4 Magnesium Level 2.1 Alkaline Phosphatase 84 Aspartate Amino Transf (AST/SGOT) 18 Alanine Aminotransferase (ALT/SGPT) 31 Total Bilirubin 0.3 Sodium Level 140 Potassium Level 4.4 Chloride Level 103 Carbon Dioxide Level 30.4 Anion Gap 7 Estimat Glomerular Filtration Rate 95 Total Creatine Kinase 132 Creatine Kinase MB 5.6 Troponin I 0.02 Result Diagram: 08/28/17 1320 08/28/17 1545 Imaging Last Impressions Chest X-Ray 08/28/17 1251 Signed Impressions: Service Date/Time: Monday, August 28, 2017 13:07 - CONCLUSION: Stable mild cardiomegaly. Hari Dahl Jr., MD Course EKG Normal sinus rhythm, LVH with st changes Caprini VTE Risk Assessment Caprini VTE Risk Assessment: Mod/High Risk (score >= 2) Caprini Risk Assessment Model Point Value = 1 Point Value = 2 Point Value = 3 Point Value = 5 Age 41-60 Minor surgery BMI > 25 kg/m2 Swollen legs Varicose veins or History of unexplained or recurrent spontaneous Oral contraceptives or hormone replacement Sepsis (< 1 month) Serious lung disease, including pneumonia (< 1 month) Abnormal pulmonary function Acute myocardial infarction Congestive heart failure (< 1 month) History of inflammatory bowel disease Medical patient at bed rest Age 61-74 Arthroscopic surgery Major open surgery (> 45 min) Laparoscopic surgery (> 45 min) Malignancy Confined to bed (> 72 hours) Immobilizing plaster cast Central venous access Age >= 75 History of VTE Family history of VTE Factor V Leiden Prothrombin [id number] Lupus anticoagulant Anticardiolipin antibodies Elevated serum homocysteine Heparin-induced thrombocytopenia Other congenital or acquired thrombophilia Stroke (< 1 month) Elective arthroplasty Hip, pelvis, or leg fracture Acute spinal cord injury (< 1 month) Prophylaxis Regimen Total Risk Factor Score Risk Level Prophylaxis Regimen 0-1 Low Early ambulation 2 Moderate Order ONE of the following: *Sequential Compression Device (SCD) *Heparin 5000 units SQ BID 3-4 Higher Order ONE of the following medications: *Heparin 5000 units SQ TID *Enoxaparin/Lovenox 40 mg SQ daily (WT < 150 kg, CrCl > 30 mL/min) *Enoxaparin/Lovenox 30 mg SQ daily (WT < 150 kg, CrCl > 10-29 mL/min) *Enoxaparin/Lovenox 30 mg SQ BID (WT < 150 kg, CrCl > 30 mL/min) AND/OR *Sequential Compression Device (SCD) 5 or more Highest Order ONE of the following medications: *Heparin 5000 units SQ TID (Preferred with Epidurals) *Enoxaparin/Lovenox 40 mg SQ daily (WT < 150 kg, CrCl > 30 mL/min) *Enoxaparin/Lovenox 30 mg SQ daily (WT < 150 kg, CrCl > 10-29 mL/min) *Enoxaparin/Lovenox 30 mg SQ BID (WT < 150 kg, CrCl > 30 mL/min) AND *Sequential Compression Device (SCD) Assessment and Plan Assessment and Plan #1 Chest pain-admitted to chest pain center. Ruled out with 3 sets of EKGs, cardiac enzymes, and monitor overnight. Will be seen and evaluated by Dr. Chuy Queen in a.m. Discussed possibility of completing chemical stress test in a.m. to rule our coronary artery blockages. #2 Hyperlipidemia-continue Crestor #3 Hypertension-continue amlodipine and metoprolol. Education on importance of tight blood pressure control and compliance with medications. Follow a low sodium diet. #4 Edema-continue furosemide, education with time for questions and answers provided on longstanding uncontrolled blood pressure and effects on heart including congestive heart failure. Encouraged her to keep appointment for echocardiogram as previously instructed. #5 Diabetes type 2-strongly encouraged her to discuss with PCP other medication options to control her blood sugars. Diet low in refined sugars encouraged. Increase daily activity as able. Discussed importance of tight blood sugar control. Afia Vargas Aug 28, 2017 18:42
[2017-08-28] MEDS ORDERED: cloNIDine HCL 0.1 MG TAB PO PRN (20:00)
[2017-08-28] MEDS: METOPROLOL TARTRATE 25 MG TAB PO SCH (21:15)
[2017-08-28] MEDS: ATORVASTATIN 80 MG TAB PO SCH (21:15)
[2017-08-28] MEDS: SODIUM CHLORIDE 0.9% FLUSH 10 ML FLUSH IV FLUSH SCH (21:15)
[2017-08-28 21:35] LABS: CREATINE KINASE 128 U/L (26-192)
[2017-08-28 21:47] LABS: CKMB 5.1 NG/ML (0.5-3.6)
[2017-08-28 23:34] LABS: CREATINE KINASE 128 U/L (26-192)
[2017-08-28 23:47] LABS: CKMB 5.1 NG/ML (0.5-3.6)
[2017-08-29] VITALS (7 sets, daily range): BP systolic 124–187; BP diastolic 60–96; PULSE 86–101; RESP 16–20; TEMP 98–98.6; O2SAT 92–99
--- NOTE | 2017-08-29 06:38 | EKG ---
Date Performed: 08/28/2017 Time Performed: 12:33:53 PTAGE: 66 years EKG: Sinus rhythm LEFT VENTRICULAR HYPERTROPHY AND ST-T CHANGE vsischemia ABNORMAL ECG Since PREVIOUS TRACING , no significant change noted PREVIOUS TRACIN05/13/2017 12.49 DOCTOR: Alla Pinedo Interpretating Date/Time 08/29/2017 06:38:31
--- NOTE | 2017-08-29 06:41 | EKG ---
Date Performed: 08/28/2017 Time Performed: 18:55:43 PTAGE: 66 years EKG: ATRIAL FLUTTER/TACHYCARDIA LEFT VENTRICULAR HYPERTROPHY AND ST-T CHANGE vs ischemia ABNORMA L ECG Since previous tracing, no significant change noted NO PREVIOUS TRACING DOCTOR: Alla Pinedo Interpretating Date/Time 08/29/2017 06:39:54
--- NOTE | 2017-08-29 06:42 | EKG ---
Date Performed: 08/28/2017 Time Performed: 21:51:28 PTAGE: 66 years EKG: Sinus rhythm LEFT VENTRICULAR HYPERTROPHY AND ST-T CHANGE vs ischemia ABNORMAL ECG Since PREVIOUS TRACING , no significant change noted PREVIOUS TRACIN08/28/2017 18.55 DOCTOR: Alla Pinedo Interpretating Date/Time 08/29/2017 06:41:04
[2017-08-29] MEDS: SODIUM CHLORIDE 0.9% FLUSH 10 ML FLUSH IV FLUSH SCH ×2 (08:01→20:47)
[2017-08-29] MEDS: ALLOPURINOL 300 MG TAB PO SCH (08:01)
[2017-08-29] MEDS: METOPROLOL TARTRATE 25 MG TAB PO SCH ×2 (08:01→20:46)
[2017-08-29] MEDS ORDERED: ASPIRIN 325 MG TAB PO SCH (09:00)
[2017-08-29] MEDS ORDERED: FUROSEMIDE 20 MG TAB PO SCH (09:00)
[2017-08-29] MEDS ORDERED: REGADENOSON INJ 0.4 MG/5 ML SYR ONE (10:21)
--- NOTE | 2017-08-29 12:10 | RADRPT ---
EXAM DATE/TIME: 08/29/2017 08:55 [facility] COMPARISON: No previous studies available for comparison. INDICATIONS : Bilateral lower extremity edema. Abnormal EKG. DOSE: 25.7 mCi Tc99m Myoview at stress. 8.8 mCi Tc99m Myoview at rest. 0.4 mg Lexiscan STRESS SYMPTOMS: Short of breath. EJECTION FRACTION: 67% MEDICAL HISTORY : Hypercholesterolemia. Hypertension. Stroke. SURGICAL HISTORY : Tubal ligation. ENCOUNTER: Initial ACUITY: 1 day PAIN SCALE: 0/10 LOCATION: chest TECHNIQUE: The patient underwent pharmacologic stress with infusion of prescribed dose. Continuous ECG tracing was monitored during stress. Gated SPECT imaging was performed after stress and conventional SPECT i maging was performed at rest. The examination was performed on a SPECT/CT scanner, both attenuation and non-corrected datasets were reviewed. FINDINGS: DISTRIBUTION: The maximum perfused segment at stress is in the septal wall. PERFUSION STUDY: The pattern of perfusion at stress is about 10% redistribution segments of the anterior wall which wo uld not be considered statistically significant. However, there is about 20% redistribution in the hi gh posterior/basilar wall which is concerning for an area of ischemia.. GATED STUDY: There is intact wall motion and thickening without hypokinetic or dyskinetic segments. CONCLUSION: 1. Scintigraphic findings concerning for an area of ischemia in the high posterior/basilar wall. 2. Otherwise, excellent wall motion throughout with estimated ejection fraction of 67%. RISK CATEGORY: Intermediate (1-3% Annual Mortality Rate) Matthew Luciano MD on August 29, 2017 at 11:51 Board Certified Radiologist. This report was verified electronically.
--- NOTE | 2017-08-29 14:06 | PD.CARD.PN ---
Subjective Subjective Remarks No complaints overnight Objective Medications Current Medications Medications (Trade) Dose Ordered Sig/Bertha Route Start Time Stop Time Status Last Admin (NS Flush) 2 ml UNSCH PRN IVF 08/28/17 13:00 (NS Flush) 2 ml BID IV FLUSH 08/28/17 21:00 08/29/17 08:01 (Tylenol) 500 mg Q4H PRN PO 08/28/17 17:15 (Zofran Inj) 4 mg Q6H PRN IV PUSH 08/28/17 17:15 (Nitrostat Sl) 0.4 mg Q5M PRN SL 08/28/17 17:15 (Aspirin) 325 mg DAILY PO 08/29/17 09:00 08/29/17 08:01 (Zyloprim) 300 mg DAILY PO 08/29/17 09:00 08/29/17 08:01 (Norvasc) 10 mg DAILY PO 08/29/17 09:00 08/29/17 08:01 (Lasix) 20 mg DAILY PO 08/29/17 09:00 08/29/17 08:01 (Lopressor) 25 mg BID PO 08/28/17 21:00 08/28/17 21:15 (Lipitor) 80 mg HS PO 08/28/17 21:00 08/28/17 21:15 (Catapres) 0.1 mg Q6H PRN PO 08/28/17 20:00 Vital Signs / I&O Vital Signs Date Time Temp Pulse Resp B/P (MAP) Pulse Ox O2 Delivery O2 Flow Rate FiO2 08/29/17 08:51 88 08/29/17 07:44 98 21 08/29/17 07:06 98.1 87 20 144/67 (92) 94 08/29/17 05:37 98.0 86 18 140/62 (88) 92 08/28/17 23:44 98.1 88 18 136/64 (88) 95 08/28/17 21:21 98 08/28/17 21:09 94 08/28/17 20:12 99 18 183/77 (112) 95 08/28/17 17:40 08/28/17 17:23 90 21 146/67 (93) 96 Room Air 08/28/17 17:17 97 08/28/17 14:28 71 20 211/81 (124) 95 Room Air Physical Exam GENERAL: Alert WN, WD, NAD, pleasant, female HEAD: NC, AT CV: RRR, 2/6 systolic murmur. No carotid bruits RESP: Clear lungs throughout bilateral, no crackles, wheeze, rhonchi, symmetrical chest rise, nonlabored, able to speak in full sentences EXT: Pulses +24, +1 pitting bilateral lower leg edema PSYCH: A+O 3, pleasant affect, appropriate speech, appropriate mood and affect , insight and judgment SKIN: Normal turgor, normal texture Laboratory Laboratory Tests Test 08/28/17 15:45 08/28/17 20:14 08/28/17 22:58 Prothrombin Time 10.6 SEC Prothromb Time International Ratio 1.0 RATIO Activated Partial Thromboplast Time 26.5 SEC Blood Urea Nitrogen 17 MG/DL Creatinine 0.74 MG/DL Random Glucose 87 MG/DL Total Protein 7.7 GM/DL Albumin 3.6 GM/DL Calcium Level 9.4 MG/DL Magnesium Level 2.1 MG/DL Alkaline Phosphatase 84 U/L Aspartate Amino Transf (AST/SGOT) 18 U/L Alanine Aminotransferase (ALT/SGPT) 31 U/L Total Bilirubin 0.3 MG/DL Sodium Level 140 MEQ/L Potassium Level 4.4 MEQ/L Chloride Level 103 MEQ/L Carbon Dioxide Level 30.4 MEQ/L Anion Gap 7 MEQ/L Estimat Glomerular Filtration Rate 95 ML/MIN Total Creatine Kinase 132 U/L 128 U/L 128 U/L Creatine Kinase MB 5.6 NG/ML 5.1 NG/ML 5.1 NG/ML Troponin I 0.02 NG/ML 0.03 NG/ML 0.02 NG/ML Imaging Last 24 hours Impressions Myocardial Perfusion Scan Nuc Med 08/29/17 0000 Signed Impressions: Service Date/Time: Tuesday, August 29, 2017 08:55 - CONCLUSION: 1. Scintigraphic findings concerning for an area of ischemia in the high posterior/basilar wall. 2. Otherwise, excellent wall motion throughout with estimated ejection fraction of 67%%. RISK CATEGORY: Intermediate (1-3%% Annual Mortality Rate) Matthew Luciano MD Assessment and Plan Assessment and Plan #1 Chest pain-admitted to chest pain center. Positive chemical stress test. Consult to cardiology. #2 Hyperlipidemia-continue Crestor #3 Hypertension-continue amlodipine and metoprolol. #4 Edema-no acute findings, +1 pitting bilateral lower edema. continue furosemide. Obtain 2d echo. #5 Diabetes type 2-SSI low dose coverage 1400 Dr. Shaun Arriola at bedside. MD discussed in length recommendation for cardiac catheterization. Patient agrees for cardiac catheterization tomorrow morning. Patient encouraged to notify GENERAL SERVICE OFFICER once family arrived regarding plan of care. Dr. Arriola requesting echocardiogram. Afia Vargas Aug 29, 2017 14:06
[2017-08-29] MEDS ORDERED: DEXTROSE 50% IN WATER 50 ML VIAL(D50) IV PUSH PRN (14:15)
[2017-08-29] MEDS ORDERED: GLUCAGON 1 MG/ML VIAL OTHER PRN (14:15)
--- NOTE | 2017-08-29 14:46 | HHI.PR ---
Subjective Remarks Follow-up for leg swelling, intermitted chest pain, abnormal Lexiscan. Patient came to the hospital on 08/28/2017 due to leg swelling. At the time of this interview today she reports that she never had any chest pain. However it is documented in the ED note as well as cardiology note that patient reported intermittent chest pain. Patient's son is at bedside. She underwent Lexiscan which showed an area of ischemia in the high posterior/basilar wall. No fever or chills. Objective Vitals Vital Signs Date Time Temp Pulse Resp B/P (MAP) Pulse Ox O2 Delivery O2 Flow Rate FiO2 08/29/17 14:29 98.0 97 20 187/94 (125) 99 08/29/17 08:51 88 08/29/17 07:44 98 21 08/29/17 07:06 98.1 87 20 144/67 (92) 94 08/29/17 05:37 98.0 86 18 140/62 (88) 92 08/28/17 23:44 98.1 88 18 136/64 (88) 95 08/28/17 21:21 98 08/28/17 21:09 94 08/28/17 20:12 99 18 183/77 (112) 95 08/28/17 17:40 08/28/17 17:23 90 21 146/67 (93) 96 Room Air 08/28/17 17:17 97 Result Diagram: 08/28/17 1320 08/28/17 1545 Imaging Last Impressions Myocardial Perfusion Scan Nuc Med 08/29/17 0000 Signed Impressions: Service Date/Time: Tuesday, August 29, 2017 08:55 - CONCLUSION: 1. Scintigraphic findings concerning for an area of ischemia in the high posterior/basilar wall. 2. Otherwise, excellent wall motion throughout with estimated ejection fraction of 67%%. RISK CATEGORY: Intermediate (1-3%% Annual Mortality Rate) Matthew Luciano MD Chest X-Ray 08/28/17 1251 Signed Impressions: Service Date/Time: Monday, August 28, 2017 13:07 - CONCLUSION: Stable mild cardiomegaly. Hari Dahl Jr., MD Objective Remarks GENERAL: Alert, oriented 3, NAD. SKIN: Warm and dry. HEAD: Normocephalic. EYES: No scleral icterus. No injection or drainage. NECK: Supple, trachea midline. No JVD or lymphadenopathy. CARDIOVASCULAR: Regular rate and rhythm without murmurs, gallops, or rubs. RESPIRATORY: Breath sounds equal bilaterally. No accessory muscle use. GASTROINTESTINAL: Abdomen soft, non-tender, nondistended. MUSCULOSKELETAL: No cyanosis, or edema. 1+ edema in both lower extremity is. BACK: Nontender without obvious deformity. No CVA tenderness. Procedures Lexiscan 08/29/2017 A/P Problem List: (1) Chest pain ICD Code: R07.9 - Chest pain, unspecified Status: Acute (2) Hypertension ICD Code: I10 - Essential (primary) hypertension Assessment and Plan Ms. Gagnon is a 66-year-old female who presented to the emergency department on 08/28/2017 due to bilateral leg swelling. Although it is documented in the ED note as well as the cardiology note that patient reported intermittent chest pain, patient denies having any chest pain. She underwent Lexiscan on 08/29/2017 which showed high posterior/basilar wall ischemia. Patient was subsequently transferred to hospitalist service and cardiology was consulted for further workup. - Chest pain, intermittent - Bilateral lower extremity edema - Due to abnormal Lexiscan, cardiology evaluated patient. Agent will likely undergo cardiac catheterization on 08/30/2017. - We'll reduce aspirin to 81 mg daily, continue Lipitor 80 mg daily at bedtime, metoprolol 25 mg twice a day. - Will DC furosemide and start torsemide 10 mg twice a day - Hypertension - Patient has been normotensive during the day. However this afternoon her blood pressure was elevated. She reports white coat syndrome - Continue amlodipine 10 mg daily. Torsemide should also help with hypertension. Full code. Ambulation. If longer stay is anticipated, we'll consider Lovenox for DVT prophylaxis. Discussed with cardiology, patient's son as well. Problem Qualifiers (1) Chest pain: Qualified Codes: R07.9 - Chest pain, unspecified Denny Weinberg DO Aug 29, 2017 2:46 pm
--- NOTE | 2017-08-29 16:22 | TR ---
Date Performed: 08/29/2017 Time Performed: 10:22:20 DOCTOR: Chuy Queen DRUG LIST: CLINICAL HISTORY: REASON FOR TEST: Angina REASON FOR ENDING: OBSERVATION: CONCLUSION: Lexiscan stress test was performed under standard four minute protocol. Radionuclid e was injected one minute prior to ending the test. Non specific ST- t changes were present through t esting. Nuclear imaging and interpretation are pending. COMMENTS:
[2017-08-29] MEDS: INSULIN ASPART SUPPLEMENTAL SCALE SQ SCH ×2 (17:00→20:47)
[2017-08-29] MEDS: TORSEMIDE 5 MG TAB PO SCH (18:28)
[2017-08-29] MEDS: ATORVASTATIN 80 MG TAB PO SCH (20:46)
[2017-08-30] VITALS: PULSE 80
[2017-08-30 03:53] VITALS: BP 143/90; PULSE 88; RESP 18; TEMP 98.1; O2SAT 94
[2017-08-30 04:00] VITALS: PULSE 86
[2017-08-30 07:24] VITALS: O2SAT 98
[2017-08-30 07:32] VITALS: BP 139/73; PULSE 91; RESP 18; TEMP 98.4; O2SAT 99
[2017-08-30] MEDS: TORSEMIDE 5 MG TAB PO SCH (07:37)
[2017-08-30] MEDS: SODIUM CHLORIDE 0.9% FLUSH 10 ML FLUSH IV FLUSH SCH (07:37)
[2017-08-30] MEDS: METOPROLOL TARTRATE 25 MG TAB PO SCH (07:38)
[2017-08-30] MEDS: ALLOPURINOL 300 MG TAB PO SCH (07:38)
[2017-08-30] MEDS: INSULIN ASPART SUPPLEMENTAL SCALE SQ SCH (08:00)
--- NOTE | 2017-08-30 08:14 | MB ---
cc: SHAUN CLEMENTS DO DATE OF CONSULTATION 08/29/2017 REASON FOR CONSULTATION Abnormal stress test. HISTORY OF PRESENT ILLNESS Christianne Gagnon is a pleasant 66-year-old female who presented to [facility] emergency room on August 28, 2017 due to worsening bilateral lower extremity edema and intermittent chest pain. She states that the edema has been coming on over the past two months. She was started on Lasix 20 mg daily. She has also had chest pressure for the past two months. It is substernal in nature and is more of a dull pressure than anything. It does not radiate anywhere. It lasts one to two minutes at a that time. She does seem to be more short of breath with it. She was originally placed in the chest pain center and underwent stress testing with findings of ischemia in the high posterior basal wall considered an immediate risk distress. Because of this, I was asked to see here for consideration of cardiac catheterization. PAST MEDICAL HISTORY 1. Hypertension 2. Hyperlipidemia 3. CVA with right-sided weakness (2013) 4. Gout PAST SURGICAL HISTORY 1. Bilateral cataract surgery 2. Tubal ligation ALLERGIES SULFA MEDICATIONS 1. Crestor 40 mg every night 2. Metoprolol tartrate 25 mg b.i.d. 3. Norvasc 10 mg daily 4. Aspirin 81 mg daily 5. Lasix 20 mg daily 6. Allopurinol 300 mg daily FAMILY HISTORY Denies a family history of coronary artery disease or sudden cardiac within the family. SOCIAL HISTORY The patient previously smoked one and a half packs of cigarettes a day, but quit 30 years ago. He denies any alcohol or drug abuse. REVIEW OF SYSTEMS Fourteen systems were reviewed including osteopathic pertinent positives and negatives as above, otherwise negative. PHYSICAL EXAMINATION VITAL SIGNS: Temperature 98.0, heart rate 97, blood pressure 144/67, respirations 20, pulse ox 98% on room air. GENERAL: In general, the patient appears well in no acute distress, alert, awake and oriented times x3. HEAD, EYES, EARS, NOSE, AND THROAT: Extraocular muscles intact. Mucous membranes moist. NECK: Supple. No JVD at 45 degrees. No carotid bruits heard bilaterally. Carotid upstroke is brisk in nature. HEART: Regular rate and rhythm. Positive first and second heart sounds with no known murmur, gallops or rubs. LUNGS: Clear to auscultation bilaterally. No wheeze, rales or rhonchi. ABDOMEN: Soft, nontender, and nondistended. No organomegaly noted. EXTREMITIES: Show 1+ pitting edema bilaterally. NEUROLOGIC: No focal deficits. SKIN: Warm, dry and intact. OSTEOPATHIC: Mild lordosis. No kyphoscoliosis or paraspinal tender points. LABORATORY FINDINGS Hemoglobin 13.4, hematocrit 40.8, platelets 302. Potassium 4.4, BUN 17, creatinine 0.74, troponin negative x3. Electrocardiogram (August 28, 2017 at 2151), sinus rhythm, LVH with secondary ST-T wave changes versus ischemia. Pharmacologic nuclear stress testing (August 29, 2017) concern for an area of ischemia in the high posterior basilar wall, ejection fraction 67%. IMPRESSIONS 1. Intermittent chest pain which is atypical in nature. 2. Abnormal stress test considered an intermediate risk. 3. Lower extremity edema. 4. Hypertension 5. Hyperlipidemia 6. History of CAD. 7. Remote tobacco abuse. RECOMMENDATIONS 1. Ms. Gagnon presented with chest pain and had an abnormal stress testing and because of this, she will be recommended cardiac catheterization. 2. The risks, benefits and alternatives were explained to her and she consented as such. 3. She will be n.p.o. after midnight. 4. We will check a 2-D echo to look at her overall left ventricular function, cardiac structure and possible valvopathies. 5. Further recommendations will be based on the clinical course. Thank you for allowing me to see Christianne Gagnon, if there are any questions, please do not hesitate to call. Shaun Clements DO VGP/DJL /12:05 AM /8:09 AM MTDD
--- NOTE | 2017-08-30 08:15 | HHI.PR ---
Subjective Remarks Follow-up for leg swelling, intermitted chest pain, abnormal Lexiscan. Patient is currently doing well. No acute con Objective Vitals Vital Signs Date Time Temp Pulse Resp B/P (MAP) Pulse Ox O2 Delivery O2 Flow Rate FiO2 08/30/17 07:32 98.4 91 18 139/73 (95) 99 08/30/17 07:24 98 21 08/30/17 04:00 86 08/30/17 03:53 98.1 88 18 143/90 (107) 94 08/30/17 00:00 80 08/29/17 23:33 98.2 86 16 124/60 (81) 96 08/29/17 20:00 98.6 101 18 142/96 (111) 98 08/29/17 20:00 98 08/29/17 14:29 98.0 97 20 187/94 (125) 99 08/29/17 08:51 88 Result Diagram: 08/28/17 1320 08/28/17 1545 Objective Remarks GENERAL: Alert, oriented 3, NAD. SKIN: Warm and dry. HEAD: Normocephalic. EYES: No scleral icterus. No injection or drainage. NECK: Supple, trachea midline. No JVD or lymphadenopathy. CARDIOVASCULAR: Regular rate and rhythm without murmurs, gallops, or rubs. RESPIRATORY: Breath sounds equal bilaterally. No accessory muscle use. GASTROINTESTINAL: Abdomen soft, non-tender, nondistended. MUSCULOSKELETAL: No cyanosis, or edema. 1+ edema in both lower extremity is. BACK: Nontender without obvious deformity. No CVA tenderness. Procedures Lexiscan 08/29/2017 A/P Problem List: (1) Chest pain ICD Code: R07.9 - Chest pain, unspecified Status: Acute (2) Hypertension ICD Code: I10 - Essential (primary) hypertension Assessment and Plan Ms. Gagnon is a 66-year-old female who presented to the emergency department on 08/28/2017 due to bilateral leg swelling. Although it is documented in the ED note as well as the cardiology note that patient reported intermittent chest pain, patient denies having any chest pain. She underwent Lexiscan on 08/29/2017 which showed high posterior/basilar wall ischemia. Patient was subsequently transferred to hospitalist service and cardiology was consulted for further workup. - Chest pain, intermittent - Bilateral lower extremity edema - Due to abnormal Lexiscan, cardiology evaluated patient. Agent will likely undergo cardiac catheterization on 08/30/2017. - We'll reduce aspirin to 81 mg daily, continue Lipitor 80 mg daily at bedtime, metoprolol 25 mg twice a day. - Will DC furosemide and start torsemide 10 mg twice a day - Hypertension - Patient has been normotensive during the day. However this afternoon her blood pressure was elevated. She reports white coat syndrome - Continue amlodipine 10 mg daily. Torsemide should also help with hypertension. Full code. Ambulation. If longer stay is anticipated, we'll consider Lovenox for DVT prophylaxis. Discussed with cardiology, patient's son as well. Problem Qualifiers (1) Chest pain: Qualified Codes: R07.9 - Chest pain, unspecified Denny Weinberg DO Aug 30, 2017 08:15
[2017-08-30 08:38] VITALS: PULSE 73
[2017-08-30] MEDS ORDERED: ASPIRIN EC 81 MG TABEC PO SCH (09:00)
[2017-08-30] MEDS ORDERED: HEPARIN-NS/PF INJ 1,000 ML ONE (10:52)
[2017-08-30] MEDS ORDERED: SODIUM CHLORID 0.9% 500 ML INJ 500 ML ONE (10:52)
[2017-08-30] MEDS ORDERED: MIDAZOLAM HCL 2 MG/2 ML VIAL ONE (10:53)
[2017-08-30] MEDS ORDERED: HEPARIN SODIUM - IV 10,000 UNITS/10 ML VIAL ONE (10:54)
[2017-08-30] MEDS ORDERED: VERAPAMIL HCL 5 MG/2 ML VIAL ONE (10:54)
--- NOTE | 2017-08-30 11:38 | ECHRPT ---
Indication: cad CONCLUSIONS The left ventricular systolic function is hyperdynamic with an estimated ejection fraction in the ra nge of 65- 70%. Moderate basal septal hypertrophy without evidence for left ventricular outflow obstruction or systolic anterior motion of the mitral valve at rest. Normal left ventricular size. Structurally normal tricuspid valve. There is mild tricuspid valve regurgitation. The estimated pulmonary arterial pressure is 36 mmHg. Uzrss-ii-ofjn mitral valve regurgitation. Moderate mitral annular calcification. BP: 144 / 67 HR: Rhythm: MEASUREMENTS (Male / Female) Normal Values Technical Quality:Fair 2D ECHO LV Diastolic Diameter PLAX 2.7 cm 4.2 - 5.9 / 3.9 - 5.3 cm LV Systolic Diameter PLAX 1.9 cm IVS Diastolic Thickness 2.6 cm 0.6 - 1.0 / 0.6 - 0.9 cm LVPW Diastolic Thickness 1.0 cm 0.6 - 1.0 / 0.6 - 0.9 cm LV Relative Wall Thickness 1.3 RV Internal Dim ED PLAX 3.3 cm M-MODE Aortic Root Diameter MM 2.8 cm LA Systolic Diameter MM 4.1 cm LA Ao Ratio MM 1.5 AV Cusp Separation MM 1.3 cm DOPPLER LVOT Peak Velocity 154.0 cm/s LVOT Peak Gradient 9.5 mmHg LVOT Velocity Time Integral 36.7 cm Mitral E Point Velocity 59.2 cm/s Mitral A Point Velocity 138.0 cm/s Mitral E to A Ratio 0.4 LV E' Lateral Velocity 12.5 cm/s Mitral E to LV E' Lateral Ratio 4.7 LV E' Septal Velocity 6.6 cm/s Mitral E to LV E' Septal Ratio 8.9 TR Peak Velocity 259.0 cm/s TR Peak Gradient 26.8 mmHg Right Atrial Pressure 10.0 mmHg Pulmonary Artery Systolic Pressu 36.8 mmHg Right Ventricular Systolic Press 36.8 mmHg FINDINGS LEFT VENTRICLE The left ventricular systolic function is hyperdynamic with an estimated ejection fraction in the ra nge of 65- 70%. Moderate basal septal hypertrophy without evidence for left ventricular outflow obstruction or systolic anterior motion of the mitral valve at rest. Normal left ventricular size. RIGHT VENTRICLE Normal right ventricular size and systolic function. LEFT ATRIUM The left atrial size is normal. RIGHT ATRIUM The right atrial size is normal. ATRIAL SEPTUM Normal atrial septal thickness without atrial level shunting by limited color doppler interrogation. AORTA The aortic root and proximal ascending aorta are normal in size on limited imaging. MITRAL VALVE Tztqr-he-[id number] mitral valve regurgitation. Moderate mitral annular calcification. AORTIC VALVE Trileaflet aortic valve. No aortic valve regurgitation. TRICUSPID VALVE Structurally normal tricuspid valve. There is mild tricuspid valve regurgitation. The estimated pulmonary arterial pressure is 36 mmHg. PULMONARY VALVE No pulmonary valve regurgitation or stenosis. VESSELS The inferior vena cava is normal in size. PERICARDIUM No pericardial effusion. Roderick Dotson MD (Electronically Signed) Final Date:30 August 2017 11:37
--- NOTE | 2017-08-30 11:56 | CATHPROC ---
[facility] HIS Report Study Information Study Number Admission Scheduled Start Study Start [id number] Aug 28 2017 4:58PM 08/30/2017 Aug 30 2017 10:56AM [place] Service Cardiac Catheterization Admit Source Facility Department Emergency department [facility] - Government Instructor Physician and Clinical Staff Initial Shaun España Clinical Psychologist Private Practice Chuy Jarrell Clinical Psychologist Private Practice Mo Terrazas,KAITLIN Recorder Abel Sweet,RT(R) Recorder Germaine Malave,RT(R) Scrub Karolina Araiza,INTRANET SPECIALIST TECH2 Procedures Performed Procedure Location (Site) Vessel Name Coronary Angiograms LCA Left Coronary Coronary Angiograms RCA Right Coronary L Heart Cath Wire insertion Radial (right) Radial Art. Equipment Time Exhibit Electrician Description Size Mfg Part Number Used/Scraped TRANSDUCER, TRUWAVE [id number] 10:59 Tebla STALLINGS * Used W/STOCKCOCK *[id number] *[id number] *[id number] 10:59 [employer]anner PACK, CCL CUSTOM * Used *[id number] 10:59 [employer] SUPPORT, ARTERIAL ADULT [id number] *[id number] Used BAND, RADIAL COMPRESSION TR [id number] 11:43 [employer] MEDICAL 24CM Used SHORT 24 *[id number] 10:59 SendUs WIRE, EXCHANGE 260CM 3MMJ 260CM Used *[id number] 10:59 NAMIC MANIFOLD, 4 PORT * Used *[id number] 10:59 NYCOMED OMNIPAQUE, 350 MG, 150ML 150ML [id number] Used [id number] 10:59 [employer]ORDANO MEDICAL BLANKET,WARM AIR CCL * Used *[id number] SHEATH, FR6 TRANSRADIAL RM*[id number] 10:59 [employer]el[employer] MEDICAL FR 6 Used SLENDER 10CM *[id number] History: Current Medications Medication Dosage/Unit Route Frequency Last Date/Time Taken ASA Statins (any) Beta Jarvis LOPRESSOR NORVASC History: Allergies Allergy Reaction Sulfa Sulfa (Sulfonamide Antibiotics) History: Risk Factors Family History of Hypertension Dyslipidemia Previous MA Previous Heart Failure Premature CAD Yes Yes Yes No Yes Prior Valve Prior PCI Prior CABG Surgery No No No Cerebrovascular Peripheral Artery Chronic Lung On Dialysis Diabetes Disease Disease Disease No Yes No No No History: Risk Factors Selection Items Hypercholesterolemia-Lipid Low. Therapy Obesity History: Symptoms/Diagnosis Selection Items Chest pain History: Stress Tests Stress or Imaging Studies Performed Yes Standard Exercise Stress Test No Stress Echo No Stress Test SPECT Stress Test SPECT Result Stress Test SPECT Ischemia Risk/Extent Yes Positive Intermediate Stress Test CMR No Cardiac CTA Coronary Calcium Score No No History: Other Disease Selection Items HTN History: Other Current Smoker Method Quit Packs a Day Years Used Pack Years No Cigarettes 30 Years Ago 1 1 1 Labs Hgb (g/dl) Hct (%) RBC (MIL/MM3) WBC (l/cumm) Platelets (thousands) 11.60-17.00 35.00-51.00 4.00-5.90 4.00-11.00 150.00-450.00 13.4 40.8 4.6 7.1 302 Glucose (mg/dl) BUN (mg/dl) Creatinine (mg/dl) BUN:Creatinine (1:x) 74.00-106.00 7.00-18.00 0.50-1.30 10.00-20.00 87 17 0.7 24.3 Na (meq/l) K (meq/l) Cl (meq/l) CO2 (mmol/L) Ca (mg/dl) 136.00-145.00 3.50-5.10 98.00-107.00 21.00-32.00 8.50-10.10 140 4.4 103 30.4 9.4 PT (sec) PTT (sec) INR (PTT:PT) 9.80-11.60 24.30-30.10 0.90-1.10 10.6 26.5 1 Troponin I (ng/ml) CPK-MB (ng/ML) 0.02-0.05 0.50-3.60 0.02 5.1 Medication Medication Total Dose (Bolus/Oral) Medication Total Dosage/Unit 1% XYLOCAINE 5 mL FENTANYL 25 mcg RADIAL COCKTAIL 5 mL (Bolus) VERSED 0.5 mg Medications (Bolus/Oral) Medication Time Given Dosage/Unit Administered By Reason 08/30/2017 11:20:22 VERSED 0.5 mg Shaun Arriola AM 0.5 mg VERSED given in lab by Shaun Arriola in Left Hand via Peripheral IV. 08/30/2017 11:23:27 1% XYLOCAINE 5 mL Shaun Arriola AM 5 mL 1% XYLOCAINE given in lab by Arriola, Vincent G in Right Radial via Subcutaneous. 08/30/2017 11:25:00 Ntg 200mcg Verapamil 2.5mg Heparin RADIAL COCKTAIL 5 mL (Bolus) Shaun Arriola AM 2000U 5 mL (Bolus) RADIAL COCKTAIL given in lab by Shaun Arriola via Radial. Using [Solution Name]. O rdered by Shaun Arriola. Reason: Ntg 200mcg Verapamil 2.5mg Heparin 3700U. 08/30/2017 11:53:57 FENTANYL 25 mcg Shaun Arriola AM 25 mcg FENTANYL given in lab by Shaun Arriola in Left Hand via Peripheral IV. Medication (Drip) Medication Time Given Dosage/Unit Concentration/Unit Diluent (ml) Solution 08/30/2017 11:00:48 IV Solutions 0 mL (IV) 500 NaCl .9 AM IV Solutions given in lab by Mo Terrazas, KAITLIN in Left Hand via Peripheral IV. Pump/Drip Flow = 20 m l/hr using NaCl .9. Initial Case Assessment Cardiovascular HR Rhythm NIBP Chest Pain 92 Sinus 193/85 0 Edema Present Skin color Skin None Normal Warm Dry Circulatory - Right Pulses Dorsalis Pedis Femoral Radial 2 2 2 Scale (0,1,2,3,4,d) Scale (0,1,2,3,4,d) Neurological State Oriented to time-place- Alert Moves all extremities person Respiration - General Respiration Rate SpO2 (%) O2 (lpm) (B/min) 21 99 0 Final Case Assessment Cardiovascular HR Rhythm NIBP Chest Pain 87 Sinus 173/87 0 Edema Present Skin color Skin None Normal Warm Dry Circulatory - Right Pulses Dorsalis Pedis Femoral Radial 2 2 2 Scale (0,1,2,3,4,d) Scale (0,1,2,3,4,d) Neurological State Oriented to time-place- Alert Moves all extremities person Respiration - General Respiration Rate SpO2 (%) O2 (lpm) (B/min) 19 98 0 Chronological Log Time Study Chronological Log 10:50:28 Patient arrived via Bed. 10:56:41 Patient Name, D.O.B, / Armband Verified By R.N. 10:56:42 Consent signed by the physician and the patient and verified by the Government Instructor staff. 10:56:43 Pre-op and post- op instructions given; patient acknowledges understanding of instructions. 10:56:57 Verbal Stimulation=2 Physical Stimulation=2 Airway=2 Respiration=2 TOTAL=8. (0=absent, 1=li mited, 2=present) 10:59:44 Presedation assessment performed by Government Instructor RN. 10:59:50 Allens test performed on the right radial and ulnar artery. 11:00:06 Patient has been NPO for More than 6Hrs. 11:00:08 Skin Breakdown- none per patient. 11:00:24 Patient Warmer Placed on the Table. 11:00:26 Daniel Prominences Protected 11:00:30 A # 22 IV was noted in the Hand (left). Grade = 0 11:00:48 IV Solutions given in lab by Mo Terrazas RN in Left Hand via Peripheral IV. Pump/Drip F low = 20 ml/hr using NaCl .9. 11:01:11 History and physical on the chart or being dictated. Assessment: Initial Case, HR=92 BPM, Rhythm=Sinus, RILP=675/85 mmhg, Chest Pain=0, Edema=None, Color=Normal, Skin = Warm, Dry 11:01:12 Right Pulses: Evgeny Ped=2, Femoral=2, Radial=2 Neurological: State=Alert, Ox3, SAL Respiration: Resp=21 B/min, SpO2=99 %, O2=0 lpm Vitals capture started with the following parameters, Patient=Adult, Interval=5 min, Initial Pr jbrzmm=387 mmHg, 11:01:17 Deflation Rate=5 mmHg, Cuff placed on Left Arm 11:03:00 Reference ECG taken 11:03:51 HR=92 bpm, YMXF=511/85 mmhg, Resp=17 B/min, Pain=0, Naima=10, Sanz=2 11:05:25 Bilateral groins prepped with 2% chlorhexidine, and draped after a 3 minute waiting time. 11:07:37 HR=90 bpm, UAMK=052/97 mmhg, SpO2=98.0 %, Resp=24 B/min, Pain=0, Naima=10, Sanz=2 11:09:22 Pressure channel 1 zeroed. 11:12:22 MD paged 11:12:42 HR=86 bpm, BNTL=587/70 mmhg, SpO2=97.0 %, Resp=13 B/min, Pain=0, Naima=10, Sanz=2 11:14:26 MD arrived. 11:17:33 HR=90 bpm, LJPM=850/84 mmhg, SpO2=97.0 %, Resp=22 B/min, Pain=0, Naima=10, Sanz=2 11:20:22 0.5 mg VERSED given in lab by Shaun Arriola in Left Hand via Peripheral IV. Time Out. Correct patient, correct procedure, correct physician, power injector loaded, or not loaded with contrast with 11:22:15 surgical team present. Time Out Concurred by MD and individual staff in procedure. 11:22:32 HR=93 bpm, TUSL=028/85 mmhg, SpO2=96.0 %, Resp=24 B/min, Pain=0, Naima=10, Sazn=2 11:23:00 Case Start 11:23:27 5 mL 1% XYLOCAINE given in lab by Shaun Arriola in Right Radial via Subcutaneous. 11:24:09 Access site was Radial Artery. A SHEATH, FR6 TRANSRADIAL SLENDER 10CM FR 6 was advanced into the Radial (right) using the Perc utaneous 11:24:55 technique. 5 mL (Bolus) RADIAL COCKTAIL given in lab by Shaun Arriola via Radial. Using [Solution Na me]. Ordered by 11:25:00 Shaun Arriola. Reason: Ntg 200mcg Verapamil 2.5mg Heparin 3700U. A JR 4.0 INFINITI CATHETER FR 5 was advanced over a wire. OMNIPAQUE, 350 MG, 150ML 150ML was us ed for 11:25:44 injections. 11:27:37 HR=91 bpm, YRYB=857/68 mmhg, SpO2=93.0 %, Resp=21 B/min, Pain=0, Naima=10, Sanz=2 Recorded Pressure: LV, HR=93, Condition=Condition 1 11:28:22 (Left Ventricle) LV 177/2/5 Recorded Pressure: LV, Ao, HR=90, Condition=Condition 1 11:28:42 (Left Ventricle) LV 172/3/5, (Aorta) Ao 148/66/96 11:29:21 The RCA was injected and visualized at various angles. OMNIPAQUE, 350 MG, 150ML 150ML used . Recorded Pressure: Ao, HR=88, Condition=Condition 1 11:29:32 (Aorta) Ao 135/65/92 After removing the current catheter a JL 3.5 INFINITI CATHETER FR 5 was advanced over a WIRE, EXCHANGE 260CM 11:30:36 3MMJ 260CM. 11:32:38 The LCA was injected and visualized at various angles. OMNIPAQUE, 350 MG, 150ML 150ML use d. 11:33:21 HR=86 bpm, QZZO=013/70 mmhg, SpO2=91.0 %, Resp=21 B/min, Pain=0, Naima=10, Sanz=2 11:37:31 HR=86 bpm, ZMIA=331/76 mmhg, SpO2=93.0 %, Resp=21 B/min, Pain=0, Naima=10, Sanz=2 11:40:32 The LCA was injected and visualized at various angles. OMNIPAQUE, 350 MG, 150ML 150ML use d. 11:42:30 HR=81 bpm, TILO=346/80 mmhg, SpO2=92.0 %, Resp=23 B/min, Pain=0, Naima=10, Sanz=2 11:42:47 A WIRE, EXCHANGE 260CM 3MMJ 260CM was inserted via Radial (right). 11:43:25 Catheter was removed 11:43:27 Wire removed 11:43:50 Case End 11:44:02 No case complications noted. 11:44:03 Cine recording checked. Radial Compression Device Used. ~VOLUME ML~ mLs of air placed in BAND, RADIAL COMPRESSION TR S HORT 24 11:45:29 24CM. Affected hand ~O2 SATURATION~ % O2 saturation. Assessment: Final Case, HR=87 BPM, Rhythm=Sinus, YHPC=026/87 mmhg, Chest Pain=0, Edema=None, Color=Normal, Skin = Warm, Dry 11:46:40 Right Pulses: Evgeny Ped=2, Femoral=2, Radial=2 Neurological: State=Alert, Ox3, SAL Respiration: Resp=19 B/min, SpO2=98 %, O2=0 lpm 11:47:31 HR=87 bpm, ICTG=686/87 mmhg, SpO2=96.0 %, Resp=13 B/min, Pain=0, Naima=10, Sanz=2 11:49:13 Bedside Report will be given. 11:49:19 A Left Heart Cath was performed. 11:51:05 Vitals capture stopped. 11:52:08 Patient moved to stretcher 11:53:57 25 mcg FENTANYL given in lab by Shaun Arriola in Left Hand via Peripheral IV. End Study - Contrast Media Used In Study Contrast Total Opened (mL) Total Used (mL) Total Wasted (mL) Hypaque 76 150 60 90 End Study - Maximum Contrast Load Max Contrast Load (mL) 664.3 End Study - Radiation Exposure Fluoro Time (minutes) 9.4 End Study - Patient Disposition Complications Transferred To Interventional Outcome No Telemetry Bed No attempt made
[2017-08-30] MEDS ORDERED: K-TA10TA PO (11:57)
[2017-08-30] MEDS ORDERED: TORS5TAB2 PO (11:57)
[2017-08-30] MEDS ORDERED: MISC INFORMATION XX ONE (12:00)
--- NOTE | 2017-08-30 12:36 | MA ---
cc: BUTCH CLEMENTS DO DATE: August 30, 2017 PROCEDURE Left heart catheterization, coronary angiogram, moderate sedation 20 minutes. PREPROCEDURE DIAGNOSIS Chest pain, abnormal stress test, accelerated hypertension. POSTPROCEDURE DIAGNOSIS Mild coronary artery disease. MEDICATIONS 1. Versed 0.5 mg. 2. Fentanyl 25 mcg. 3. Heparin 3700 units. 4. Verapamil 2.5 mg. 5. Nitro 200 mcg. CONTRAST USED 60 ccs. FLUOROSCOPY 9.4 minutes. SEDATION Moderate sedation 20 minutes. ESTIMATED BLOOD LOSS 10 ccs. PROCEDURAL SUMMARY Christianne Gagnon is a pleasant 66-year-old female who presented to [facility] due to chest pain. She was found to have an elevated blood pressure as well as chest pain. Because of this she had a stress test that showed abnormality and because of this she was recommended cardiac catheterization. Risks, benefits and alternatives were explained to her and she consented as such. She was brought to the lab and prepped in the usual sterile fashion. Right radial artery was accessed using a modified Seldinger technique and placement of a 5/6 Spanish slender sheath. This was easily aspirated and flushed. A JR-4 was advanced over a J-wire to the ascending aorta and across the aortic valve for measurement of left ventricular pressure. This was pulled back across the aortic valve showing no significant gradient of aortic stenosis. JR-4 was used for selective angiography of the right coronary artery. This was exchanged out for a JL-3.5 which was used for selective angiography of the left coronary artery. JL-3.5 was removed over a J-wire. Radial band was placed over the arteriotomy site for hemostasis. The patient left the laborer road cardiovascularly stable. FINDINGS Left main. Normal size vessel with adequate reflux. It bifurcates into an LAD and circumflex. LAD. Normal-size vessel with mild streaming but no disease noted. There is tortuosity in the elk-zf-ucajjf portion. Two small diagonals are noted with no significant disease. Left circumflex. Normal size vessel with no significant disease. One obtuse marginal is noted with significant tortuosity, most likely due to extensive hypertension. Right coronary artery. Normal size vessel with moderate amount of tortuosity throughout but no significant disease. LVEDP 5. IMPRESSION 1. Mild coronary artery disease. 2. Significant tortuosity throughout the coronaries secondary to prolonged hypertension. 3. Accelerated hypertension upon admission. 4. Peripheral edema. RECOMMENDATIONS 1. Ms. Gagnon appears to have mild coronary artery disease and may continue to be treated medically for this. 2. Overall her biggest problem is her accelerated hypertension and this will need to be watched and medications titrated outpatient. Currently her blood pressure is better controlled. 3. As far as her lower extremity edema, we will check an echo to make sure no other problems and if no complications she may be discharged home from a cardiovascular standpoint. 4. This was discussed with her daughter Nehemias over the phone who is in agreement. Thank you for allowing me to see Christianne Gagnon, if there are any questions, please do not hesitate to call. Butch Clements DO VGP/TLL /11:57 AM /12:14 PM
--- NOTE | 2017-08-30 13:25 | PD.CARD.PN ---
Subjective Subjective Remarks No events overnight Post-cath, doing well Objective Medications Current Medications Medications (Trade) Dose Ordered Sig/Bertha Route Start Time Stop Time Status Last Admin (NS Flush) 2 ml UNSCH PRN IVF 08/28/17 13:00 (NS Flush) 2 ml BID IV FLUSH 08/28/17 21:00 08/30/17 07:37 (Tylenol) 500 mg Q4H PRN PO 08/28/17 17:15 (Zofran Inj) 4 mg Q6H PRN IV PUSH 08/28/17 17:15 (Nitrostat Sl) 0.4 mg Q5M PRN SL 08/28/17 17:15 (Zyloprim) 300 mg DAILY PO 08/29/17 09:00 08/30/17 07:38 (Norvasc) 10 mg DAILY PO 08/29/17 09:00 08/30/17 07:38 (Lopressor) 25 mg BID PO 08/28/17 21:00 08/30/17 07:38 (Lipitor) 80 mg HS PO 08/28/17 21:00 08/29/17 20:46 (Catapres) 0.1 mg Q6H PRN PO 08/28/17 20:00 (D50w (Vial) Inj) 50 ml UNSCH PRN IV PUSH 08/29/17 14:15 (Glucagon Inj) 1 mg UNSCH PRN OTHER 08/29/17 14:15 (NovoLOG SUPPLEMENTAL SCALE) 1 ACHS SLIDING SCALE SQ 08/29/17 17:00 (Ecotrin Ec) 81 mg DAILY PO 08/30/17 09:00 08/30/17 07:37 (Demadex) 10 mg BID@09,18 PO 08/29/17 18:00 08/30/17 07:37 Vital Signs / I&O Vital Signs Date Time Temp Pulse Resp B/P (MAP) Pulse Ox O2 Delivery O2 Flow Rate FiO2 08/30/17 12:05 96 Room Air 08/30/17 08:38 73 08/30/17 07:32 98.4 91 18 139/73 (95) 99 08/30/17 07:24 98 21 08/30/17 04:00 86 08/30/17 03:53 98.1 88 18 143/90 (107) 94 08/30/17 00:00 80 08/29/17 23:33 98.2 86 16 124/60 (81) 96 08/29/17 20:00 98.6 101 18 142/96 (111) 98 08/29/17 20:00 98 08/29/17 14:29 98.0 97 20 187/94 (125) 99 Physical Exam GENERAL: NAD, AAOx3 SKIN: Warm and dry. HEAD: Atraumatic. Normocephalic. EYES: Pupils equal and round. No scleral icterus. No injection or drainage. ENT: No nasal bleeding or discharge. Mucous membranes pink and moist. NECK: Trachea midline. No JVD. CARDIOVASCULAR: Regular rate and rhythm. RESPIRATORY: No accessory muscle use. Clear to auscultation. Breath sounds equal bilaterally. GASTROINTESTINAL: Abdomen soft, non-tender, nondistended. Hepatic and splenic margins not palpable. MUSCULOSKELETAL: 1+ edema pitting NEUROLOGICAL: Awake and alert. No obvious cranial nerve deficits. Motor grossly within normal limits. Five out of 5 muscle strength in the arms and legs. Normal speech. PSYCHIATRIC: Appropriate mood and affect; insight and judgment normal. Laboratory Laboratory Tests Test 08/28/17 13:20 08/28/17 15:45 08/28/17 20:14 08/28/17 22:58 White Blood Count 7.1 TH/MM3 (4.0-11.0) Red Blood Count 4.66 MIL/MM3 (4.00-5.30) Hemoglobin 13.4 GM/DL (11.6-15.3) Hematocrit 40.8 % (35.0-46.0) Mean Corpuscular Volume 87.6 FL (80.0-100.0) Mean Corpuscular Hemoglobin 28.9 PG (27.0-34.0) Mean Corpuscular Hemoglobin Concent 33.0 % (32.0-36.0) Red Cell Distribution Width 15.6 % (11.6-17.2) Platelet Count 302 TH/MM3 (150-450) Mean Platelet Volume 8.3 FL (7.0-11.0) Neutrophils (%) (Auto) 51.2 % (16.0-70.0) Lymphocytes (%) (Auto) 39.9 % (9.0-44.0) Monocytes (%) (Auto) 5.7 % (0.0-8.0) Eosinophils (%) (Auto) 2.6 % (0.0-4.0) Basophils (%) (Auto) 0.6 % (0.0-2.0) Neutrophils # (Auto) 3.6 TH/MM3 (1.8-7.7) Lymphocytes # (Auto) 2.8 TH/MM3 (1.0-4.8) Monocytes # (Auto) 0.4 TH/MM3 (0-0.9) Eosinophils # (Auto) 0.2 TH/MM3 (0-0.4) Basophils # (Auto) 0.0 TH/MM3 (0-0.2) CBC Comment DIFF FINAL Differential Comment B-Type Natriuretic Peptide 16 PG/ML (0-100) Prothrombin Time 10.6 SEC (9.8-11.6) Prothromb Time International Ratio 1.0 RATIO Activated Partial Thromboplast Time 26.5 SEC (24.3-30.1) Blood Urea Nitrogen 17 MG/DL (7-18) Creatinine 0.74 MG/DL (0.50-1.00) Random Glucose 87 MG/DL (74-106) Total Protein 7.7 GM/DL (6.4-8.2) Albumin 3.6 GM/DL (3.4-5.0) Calcium Level 9.4 MG/DL (8.5-10.1) Magnesium Level 2.1 MG/DL (1.5-2.5) Alkaline Phosphatase 84 U/L (45-117) Aspartate Amino Transf (AST/SGOT) 18 U/L (15-37) Alanine Aminotransferase (ALT/SGPT) 31 U/L (10-53) Total Bilirubin 0.3 MG/DL (0.2-1.0) Sodium Level 140 MEQ/L (136-145) Potassium Level 4.4 MEQ/L (3.5-5.1) Chloride Level 103 MEQ/L (98-107) Carbon Dioxide Level 30.4 MEQ/L (21.0-32.0) Anion Gap 7 MEQ/L (5-15) Estimat Glomerular Filtration Rate 95 ML/MIN (>89) Total Creatine Kinase 132 U/L (26-192) 128 U/L (26-192) 128 U/L (26-192) Creatine Kinase MB 5.6 NG/ML (0.5-3.6) 5.1 NG/ML (0.5-3.6) 5.1 NG/ML (0.5-3.6) Troponin I 0.02 NG/ML (0.02-0.05) 0.03 NG/ML (0.02-0.05) 0.02 NG/ML (0.02-0.05) Assessment and Plan Problem List: (1) Chest pain ICD Codes: R07.9 - Chest pain, unspecified Status: Acute (2) Hypertension ICD Codes: I10 - Essential (primary) hypertension (3) Edema ICD Codes: R60.9 - Edema, unspecified Assessment and Plan 1) Mild CAD Con't medical management 2) Edema Con't Demadex Follow up BMP in a week with PCP 3) Echo EF 60%, no significant valvular lesions noted 4) Cardiovascular stable for discharge Problem Qualifiers (1) Chest pain: Qualified Codes: R07.9 - Chest pain, unspecified Shaun Arriola DO Aug 30, 2017 13:25
--- NOTE | 2017-08-30 23:21 | HHI.DS ---
Discharge Summary Admission Date Aug 28, 2017 at 16:58 Discharge Date: Aug 30, 2017 Admitting Diagnosis chest pain (1) Chest pain ICD Code: R07.9 - Chest pain, unspecified Status: Acute (2) Hypertension ICD Code: I10 - Essential (primary) hypertension Procedures Lexiscan 08/29/2017 IMPRESSION 1. Mild coronary artery disease. 2. Significant tortuosity throughout the coronaries secondary to prolonged hypertension. 3. Accelerated hypertension upon admission. 4. Peripheral edema. RECOMMENDATIONS 1. Ms. Gagnon appears to have mild coronary artery disease and may continue to be treated medically for this. 2. Overall her biggest problem is her accelerated hypertension and this will need to be watched and medications titrated outpatient. Currently her blood pressure is better controlled. 3. As far as her lower extremity edema, we will check an echo to make sure no other problems and if no complications she may be discharged home from a cardiovascular standpoint. 4. This was discussed with her daughter Nehemias over the phone who is in agreement. Brief History - From Admission 66-year-old female with history of hypertension, hyperlipidemia, diabetes, and CVA presents to emergency room for worsening bilateral lower leg edema and intermittent chest pressure. Bilateral lower leg edema progressively worse over the past 2 months. She has follow with her PCP regarding this and started on furosemide 20 mg daily. Daughter states PCP wanted to increase furosemide to 20 mg twice a day but neither her or her mother agreed with idea. Echocardiogram scheduled for 09/03/17. Denies any weight gain or sputum production. Chest pressure onset 2 months. Location substernal characterized as pressure. Severity 1/10. No radiation of pressure or discomfort. Duration last 1-2 minutes. Associated symptoms include dyspnea. Denies nausea, vomiting , or diaphoresis. No known precipitating factors, occurs with or without activity. No known relieving factors. Denies similar pain in the past. CBC/BMP: 08/28/17 1320 08/28/17 1545 Significant Findings Laboratory Tests Test 08/28/17 13:20 08/28/17 15:45 08/28/17 20:14 08/28/17 22:58 Creatine Kinase MB 5.6 NG/ML (0.5-3.6) 5.1 NG/ML (0.5-3.6) 5.1 NG/ML (0.5-3.6) Imaging Last Impressions Myocardial Perfusion Scan Nuc Med 08/29/17 0000 Signed Impressions: Service Date/Time: Tuesday, August 29, 2017 08:55 - CONCLUSION: 1. Scintigraphic findings concerning for an area of ischemia in the high posterior/basilar wall. 2. Otherwise, excellent wall motion throughout with estimated ejection fraction of 67%%. RISK CATEGORY: Intermediate (1-3%% Annual Mortality Rate) Matthew Luciano MD Chest X-Ray 08/28/17 1251 Signed Impressions: Service Date/Time: Monday, August 28, 2017 13:07 - CONCLUSION: Stable mild cardiomegaly. Hari Dahl Jr., MD PE at Discharge GENERAL: Alert, oriented 3, NAD. SKIN: Warm and dry. HEAD: Normocephalic. EYES: No scleral icterus. No injection or drainage. NECK: Supple, trachea midline. No JVD or lymphadenopathy. CARDIOVASCULAR: Regular rate and rhythm without murmurs, gallops, or rubs. RESPIRATORY: Breath sounds equal bilaterally. No accessory muscle use. GASTROINTESTINAL: Abdomen soft, non-tender, nondistended. MUSCULOSKELETAL: No cyanosis, or edema. 1+ edema in both lower extremity is. BACK: Nontender without obvious deformity. No CVA tenderness. Pt update on day of discharge Patient was evaluated before cardiac cath. Patient reports no chest pain, shortness of breath, fever, chills. After cardiac cath, I discussed with cardiology. No stent placed. Cleared for discharge by cardiology. Hospital Course Ms. Gagnon is a 66-year-old female who presented to the emergency department on 08/28/2017 due to bilateral leg swelling. Although it is documented in the ED note as well as the cardiology note that patient reported intermittent chest pain, patient denies having any chest pain. She underwent Lexiscan on 08/29/2017 which showed high posterior/basilar wall ischemia. Patient was subsequently transferred to hospitalist service and cardiology was consulted for further workup. - Chest pain, intermittent - Bilateral lower extremity edema - Due to abnormal Lexiscan, cardiology evaluated patient. Patient underwent cardiac catheterization on 08/30/2017. - Continue Aspirin 81mg, Metoprolol 25mg BID, Crestor 40mg QHS. - Torsemide 10mg BID along with KCL 10mEQ BID. Check BMP in one week after discharge. - Hypertension - BP well controlled. - Continue amlodipine 10 mg daily. Torsemide should also help with hypertension. Follow up with PCP. Pt Condition on Discharge: Good Discharge Disposition: Discharge Home Discharge Time: <= 30 minutes Discharge Instructions DIET: Follow Instructions for: Heart Healthy Diet Activities you can perform: Regular-No Restrictions Follow up Referrals: PCP Follow-up - 1 Week New Medications: Potassium Chloride ER (K-Tab) 10 Meq Tab 10 MEQ PO BID for Electrolyte Replacement, #60 TAB 0 Refills Torsemide (Torsemide) 5 Mg Tab 10 MG PO BID@09,18 for Fluid, #60 TAB Continued Medications: Allopurinol (Allopurinol) 300 Mg Tab 300 MG PO DAILY for Gout, #30 TAB 0 Refills Amlodipine (Amlodipine) 10 Mg Tab 10 MG PO DAILY for Blood Pressure Management, #30 TAB 0 Refills Aspirin (Aspirin) 81 Mg Chew 81 MG CHEW DAILY, TAB 0 Refills Metoprolol Tartrate (Metoprolol Tartrate) 25 Mg Tab 25 MG PO BID, #60 TAB 0 Refills Rosuvastatin (Crestor) 40 Mg Tab 40 MG PO HS for Cholesterol Management, #30 TAB 0 Refills Discontinued Medications: Furosemide (Lasix) 40 Mg Tab 20 MG PO DAILY, #30 TAB 0 Refills Denny Weinberg DO Aug 30, 2017 23:21
== END 2017-08-30 17:30 | disposition home or self-care (01) ==
LOC: NEPC 12:01 → NEDA 16:58 → NEPFCDU 17:53 → HCIS 08-30 10:51
PROVIDERS: ADMIT Hospitalist; ATTEND Hospitalist
DX: R07.89 Other chest pain (principal); I25.10 Atherosclerotic heart disease of native coronary artery without angina pectoris; I51.7 Cardiomegaly; R60.0 Localized edema; E78.5 Hyperlipidemia, unspecified; E11.9 Type 2 diabetes mellitus without complications; R94.39 Abnormal result of other cardiovascular function study; R94.31 Abnormal electrocardiogram [ECG] [EKG]; R06.02 Shortness of breath; I10 Essential (primary) hypertension; Z79.82 Long term (current) use of aspirin; Z86.73 Personal history of transient ischemic attack (TIA), and cerebral infarction without residual deficits
CPT/HCPCS: 71010; 78452; 80053; 82550; 82552; 82948; 83735; 83880; 84484; 85025; 85610; 85730; 93005; 93017; 93306; 93458; 99285; A9502; C1769; C1893; G0378; J1644; J2250; J2785; J3010; J7040; Q9967

== ENCOUNTER 2017-09-01 14:04 | Emergency (ER) | payer OTHER, MEDICAID ==
[~2017-09-01] VITALS: Ht 154.9 cm; Wt 92.0 kg
[~2017-09-01 14:04] MED LIST changes: +ASPI-516 CHEW; -ASPI81CH CHEW; +K-TA10TA PO; +TORS5TAB2 PO; -TRAM50TA PO; -VALT1TAB PO
[2017-09-01 14:07] VITALS: BP 183/82; PULSE 88; RESP 16; TEMP 98.3; O2SAT 98
--- NOTE | 2017-09-01 14:48 | PD ---
HPI Chief Complaint: Skin Problem Time Seen by Provider: 14:48 Travel History International Travel<30 days: No Contact w/Intl Traveler<30days: No Traveled to known affect area: No History of Present Illness HPI 66-year-old female presents to the emergency room for wound recheck. Patient had a cardiac catheterization 2 days ago through her right radial artery. She had a pressure dressing applied and was told not to remove it for 24 hours. Patient states upon discharge, the nurse told her that if the wound bled she would in 2 minutes. Patient lives alone and has since not slept out of fear of wound opening. When she woke up today she noticed slightly increased bloody discharge around the wound. Because of the anxiety surrounding her catheterization site, she return today to have evaluated. She otherwise feels well and denies any other complaints. PFSH Past Medical History Arthritis: No Asthma: No Autoimmune Disease: No Blood Disorders: No Anxiety: No Depression: No Heart Rhythm Problems: Yes (reports palpitations) Cancer: No Cardiac Catheterization: No Cardiovascular Problems: Yes High Cholesterol: Yes Chemotherapy: No Chest Pain: No Congestive Heart Failure: No COPD: No Cerebrovascular Accident: Yes Diabetes: Yes Diminished Hearing: No Endocrine: No GERD: No Gout: Yes Genitourinary: No Headaches: Yes Hiatal Hernia: No Hypertension: Yes Immune Disorder: No Kidney Stones: No Musculoskeletal: No Neurologic: No Psychiatric: No Reproductive: No Respiratory: No Immunizations Current: Yes Migraines: No Myocardial Infarction: No Radiation Therapy: No Renal Failure: No Seizures: No Sickle Cell Disease: No Sleep Apnea: No Thyroid Disease: No Ulcer: No Menopausal: Yes Tubal Ligation: Yes Past Surgical History Abdominal Surgery: No AICD: No Arteriovenous Shunt: No Cardiac Surgery: No Coronary Artery Bypass Graft: No Ear Surgery: No Endocrine Surgery: No Eye Surgery: No Genitourinary Surgery: No Gynecologic Surgery: Yes Joint Replacement: No Oral Surgery: No Pacemaker: No Thoracic Surgery: No Other Surgery: Yes Social History Alcohol Use: No Tobacco Use: No Substance Use: No Allergies-Medications (Allergen,Severity, Reaction): Coded Allergies: Sulfa (Sulfonamide Antibiotics) (Unverified Allergy, Severe, 08/28/17) Reported Meds & Prescriptions Reported Meds & Active Scripts Active K-Tab (Potassium Chloride) 10 Meq Tab 10 Meq PO BID Torsemide 5 Mg Tab 10 Mg PO BID@ Reported Crestor (Rosuvastatin Calcium) 40 Mg Tab 40 Mg PO HS Amlodipine (Amlodipine Besylate) 10 Mg Tab 10 Mg PO DAILY Metoprolol Tartrate 25 Mg Tab 25 Mg PO BID Aspirin 81 Mg Chew 81 Mg CHEW DAILY Allopurinol 300 Mg Tab 300 Mg PO DAILY Review of Systems Except as stated in HPI: all other systems reviewed are Neg Physical Exam Narrative GENERAL: Well-nourished, well-developed female in no acute distress. Afebrile. Ambulatory. SKIN: Focused skin assessment warm/dry. Pressure dressing over the right radial artery in place. HEAD: Normocephalic. EYES: No scleral icterus. No injection or drainage. NECK: Supple, trachea midline. No JVD or lymphadenopathy. CARDIOVASCULAR: Regular rate and rhythm without murmurs, gallops, or rubs. RESPIRATORY: Breath sounds equal bilaterally. No accessory muscle use. PSYCHIATRIC: No delusional thought processes. No hallucinations. Tearful during examination. Data Data Last Documented VS Vital Signs Date Time Temp Pulse Resp B/P (MAP) Pulse Ox O2 Delivery O2 Flow Rate FiO2 09/01/17 15:37 09/01/17 14:07 98.3 88 16 98 Orders Orders Ed Discharge Order (09/01/17 14:48) MDM Medical Decision Making Medical Screen Exam Complete: Yes Emergency Medical Condition: Yes Medical Record Reviewed: Yes Differential Diagnosis Wound check, postsurgical complication, hematoma Narrative Course 66-year-old female presents to the emergency room for wound recheck. Patient had cardiac catheterization 2 days ago with pressure dressing applied to her right radial artery. She has been extremely anxious and concerned about bleeding out the wound after a nurse told her that she would in 2 minutes if it began to bleed. After pressure dressing was removed from right wrist, a small, well-healed, nonbleeding puncture wound was observed. No evidence of infection. No surrounding hematoma. Nontender to palpation. During removal of dressing, patient began to cry out of fear. She was reassured. Wound was cleansed with alcohol and pressure dressing was reapplied. Patient told to follow up with a primary care physician or return for worsening symptoms. She understands and agrees to plan. Diagnosis Primary Impression: Visit for wound check Referrals: Primary Care Physician Additional Instructions: Keep wound clean and dry. Apply triple antibiotic ointment. Keep dressing on for 24 hours, then change. Disposition: 01 DISCHARGE HOME Condition: Stable Jyoti Veliz Sep 01, 2017 14:48
== END 2017-09-01 15:37 | disposition home or self-care (01) ==
LOC: NEPD 14:04
DX: Z51.89 Encounter for other specified aftercare (principal); F41.9 Anxiety disorder, unspecified; E78.00 Pure hypercholesterolemia, unspecified; E11.9 Type 2 diabetes mellitus without complications; I10 Essential (primary) hypertension; Z86.73 Personal history of transient ischemic attack (TIA), and cerebral infarction without residual deficits; Z79.82 Long term (current) use of aspirin; Z79.899 Other long term (current) drug therapy; Z88.2 Allergy status to sulfonamides
CPT/HCPCS: 99281

== ENCOUNTER 2017-11-17 15:00 | Emergency (ER) | payer OTHER, MEDICAID ==
[~2017-11-17] VITALS: Ht 154.9 cm; Wt 97.0 kg
[2017-11-17 15:04] VITALS: BP 149/67; PULSE 87; RESP 16; TEMP 98.5; O2SAT 98
[2017-11-17] MEDS ORDERED: ASPI-516 CHEW (15:54)
[2017-11-17] MEDS ORDERED: ATOR80TA45 PO (15:54)
[2017-11-17] MEDS ORDERED: ONDANSETRON HCL 4 MG/2 ML VIAL IVP ONE (16:30)
[2017-11-17] MEDS ORDERED: SODIUM CHLORIDE 0.9% FLUSH 10 ML FLUSH IVF PRN (16:30)
--- NOTE | 2017-11-17 16:35 | PD ---
HPI Chief Complaint: GI Complaint Time Seen by Provider: 15:49 Travel History International Travel<30 days: No Contact w/Intl Traveler<30days: No Traveled to known affect area: No History of Present Illness HPI 66-year-old female presents to the emergency department with several family members for evaluation. The patient states she has been vomiting since Sunday. At approximately 2 PM today, she became dizzy and had an occipital headache. Patient states the headache was more severe earlier, but is now a 4 out of 10 without intervention. Patient denies any head injury. No falls or syncope. She states the dizziness is with movement only, relieved with lying still. Patient denies any chest pain or shortness of breath. She states she vomited once today. She was able to keep some soup done yesterday, but he lives on it today which made her vomit. No diarrhea. She has chronic constipation. Patient states that she had a headache in 2013 and she wound up having a stroke. That is why she became concerned today prompting her emergency room visit. Moderate severity. PFSH Past Medical History Arthritis: No Asthma: No Autoimmune Disease: No Blood Disorders: No Anxiety: No Depression: No Heart Rhythm Problems: Yes (reports palpitations) Cancer: No Cardiac Catheterization: No Cardiovascular Problems: Yes High Cholesterol: Yes Chemotherapy: No Chest Pain: No Congestive Heart Failure: No COPD: No Cerebrovascular Accident: Yes Diabetes: Yes Patient Takes Glucophage: No Diminished Hearing: No Endocrine: No GERD: No Gout: Yes Genitourinary: No Headaches: Yes Hiatal Hernia: No Hypertension: Yes Immune Disorder: No Kidney Stones: No Musculoskeletal: No Neurologic: No Psychiatric: No Reproductive: No Respiratory: No Immunizations Current: Yes Migraines: No Myocardial Infarction: No Radiation Therapy: No Renal Failure: No Seizures: No Sickle Cell Disease: No Sleep Apnea: No Thyroid Disease: No Ulcer: No Menopausal: Yes Tubal Ligation: Yes Past Surgical History Abdominal Surgery: No AICD: No Arteriovenous Shunt: No Cardiac Surgery: No Coronary Artery Bypass Graft: No Ear Surgery: No Endocrine Surgery: No Eye Surgery: No Genitourinary Surgery: No Gynecologic Surgery: Yes Joint Replacement: No Oral Surgery: No Pacemaker: No Thoracic Surgery: No Other Surgery: Yes Social History Alcohol Use: No Tobacco Use: No Substance Use: No Allergies-Medications (Allergen,Severity, Reaction): Coded Allergies: Sulfa (Sulfonamide Antibiotics) (Unverified Allergy, Severe, 11/17/17) Reported Meds & Prescriptions Reported Meds & Active Scripts Active K-Tab (Potassium Chloride) 10 Meq Tab 10 Meq PO BID Torsemide 5 Mg Tab 10 Mg PO BID@ Reported Aspirin 81 Mg Chew 81 Mg CHEW DAILY Atorvastatin (Atorvastatin Calcium) 80 Mg Tab 80 Mg PO HS Amlodipine (Amlodipine Besylate) 10 Mg Tab 10 Mg PO DAILY Metoprolol Tartrate 25 Mg Tab 25 Mg PO BID Aspirin 81 Mg Chew 81 Mg CHEW DAILY Allopurinol 300 Mg Tab 300 Mg PO DAILY Review of Systems Except as stated in HPI: all other systems reviewed are Neg Physical Exam Narrative GENERAL: Well-nourished, well-developed female patient, afebrile. SKIN: Focused skin assessment warm/dry. HEAD: Normocephalic. Atraumatic. EYES: No scleral icterus. No injection or drainage. PERRLA. EOM intact. ENT: Mucosa pink and moist. No erythema or exudates. No uvular edema. No uvular , palatal, or tonsillar deviation. Airway patent. Nasal turbinates appear normal without nasal blood, purulent drainage or septal hematoma. Bilateral tympanic membranes are clear without erythema or perforation. NECK: Supple, trachea midline. No JVD or lymphadenopathy. CARDIOVASCULAR: Regular rate and rhythm without murmurs, gallops, or rubs. RESPIRATORY: Breath sounds equal bilaterally. No accessory muscle use. Lung sounds are clear to auscultation throughout. GASTROINTESTINAL: Abdomen soft, non-tender, nondistended. MUSCULOSKELETAL: No cyanosis. Bilateral 2+ lower extremity edema. Bilateral upper and lower extremity strength 5/5. All extremities are neurovascularly intact. BACK: Nontender without obvious deformity. No CVA tenderness. NEUROLOGICAL: Awake and alert. Cranial nerves II through XII intact. Motor and sensory grossly within normal limits. Five out of 5 muscle strength in all muscle groups. Normal speech. Finger to nose is normal bilaterally. Patient's slight difficulty with right heel to schmid, but patient states this is normal for her. Left heel to schmid is normal. Patient has slight droop to the left corner of her mouth. Family and patient states this is normal for her due to her dentures. No droop noted with smiling. Data Data Last Documented VS Vital Signs Date Time Temp Pulse Resp B/P (MAP) Pulse Ox O2 Delivery O2 Flow Rate FiO2 11/17/17 19:25 84 16 118/58 (78) 99 Room Air 11/17/17 15:04 98.5 Orders Orders Electrocardiogram (11/17/17 16:18) Complete Blood Count With Diff (11/17/17 16:18) Comprehensive Metabolic Panel (11/17/17 16:18) Magnesium (Mg) (11/17/17 16:18) B-Type Natriuretic Peptide (11/17/17 16:18) Ckmb (Isoenzyme) Profile (11/17/17 16:18) Troponin I (11/17/17 16:18) Act Partial Throm Time (Ptt) (11/17/17 16:18) Prothrombin Time / Inr (Pt) (11/17/17 16:18) Urinalysis - C+S If Indicated (11/17/17 16:18) Ct Brain W/O Iv Contrast(Rout) (11/17/17 16:18) Ecg Monitoring (11/17/17 16:18) Iv Access Insert/Monitor (11/17/17 16:18) Oximetry (11/17/17 16:18) Ondansetron Inj (Zofran Inj) (11/17/17 16:30) Sodium Chloride 0.9% Flush (Ns Flush) (11/17/17 16:30) Mri Brain W/O Contrast (11/17/17 ) Meclizine (Antivert) (11/17/17 16:45) Ct Abd/Pel W/O Iv Contrast (11/17/17 ) CKMB (11/17/17 17:20) CKMB% (11/17/17 17:20) Cath For Specimen (11/17/17 20:19) Labs Laboratory Tests Test 11/17/17 17:20 White Blood Count 10.1 TH/MM3 Red Blood Count 4.40 MIL/MM3 Hemoglobin 12.7 GM/DL Hematocrit 38.5 % Mean Corpuscular Volume 87.6 FL Mean Corpuscular Hemoglobin 28.8 PG Mean Corpuscular Hemoglobin Concent 32.9 % Red Cell Distribution Width 14.4 % Platelet Count 323 TH/MM3 Mean Platelet Volume 8.0 FL Neutrophils (%) (Auto) 74.7 % Lymphocytes (%) (Auto) 18.1 % Monocytes (%) (Auto) 6.0 % Eosinophils (%) (Auto) 0.5 % Basophils (%) (Auto) 0.7 % Neutrophils # (Auto) 7.5 TH/MM3 Lymphocytes # (Auto) 1.8 TH/MM3 Monocytes # (Auto) 0.6 TH/MM3 Eosinophils # (Auto) 0.1 TH/MM3 Basophils # (Auto) 0.1 TH/MM3 CBC Comment DIFF FINAL Differential Comment Prothrombin Time 10.7 SEC Prothromb Time International Ratio 1.1 RATIO Activated Partial Thromboplast Time 32.5 SEC Blood Urea Nitrogen 13 MG/DL Creatinine 0.93 MG/DL Random Glucose 112 MG/DL Total Protein 8.6 GM/DL Albumin 3.6 GM/DL Calcium Level 9.7 MG/DL Magnesium Level 2.3 MG/DL Alkaline Phosphatase 105 U/L Aspartate Amino Transf (AST/SGOT) 36 U/L Alanine Aminotransferase (ALT/SGPT) 27 U/L Total Bilirubin 0.4 MG/DL Sodium Level 138 MEQ/L Potassium Level 4.8 MEQ/L Chloride Level 102 MEQ/L Carbon Dioxide Level 30.7 MEQ/L Anion Gap 5 MEQ/L Estimat Glomerular Filtration Rate 73 ML/MIN Total Creatine Kinase 222 U/L Creatine Kinase MB 5.7 NG/ML Creatine Kinase MB % 2.6 % Troponin I 0.04 NG/ML B-Type Natriuretic Peptide 37 PG/ML MDM Medical Decision Making Medical Screen Exam Complete: Yes Emergency Medical Condition: Yes Medical Record Reviewed: Yes Interpretation(s) CT brain - CONCLUSION: No acute intracranial abnormality demonstrated. Old left occipital lobe infarct. MRI brain - CONCLUSION: 1. No acute intracranial abnormality demonstrated. 2. Old left occipital lobe infarct and mild to moderate, chronic white matter changes. CT abdomen/pelvis - CONCLUSION: 1. Unremarkable bowel gas pattern. 2. Unremarkable gallbladder. 3. Stable calcified granuloma in the right lower lobe and partially calcified soft tissue nodule in the left lower lobe not previously visualized. 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 Differential Diagnosis Vertigo versus electrolyte abnormality versus dehydration versus CVA versus TIA Narrative Course 66-year-old female presents to the emergency department for evaluation of vomiting, dizziness, headache. She does state she had CVA with headache previously. EKG, CBC, CMP, magnesium, CK, troponin, BNP, PTT, PT/INR, UA are ordered and pending. Patient is given Zofran 4 mg IV, meclizine [address] of the brain and MRI of the brain are ordered and pending. CT abdomen/pelvis is ordered and pending. EKG shows sinus rhythm, heart rate 87, similar to previous EKG. CBC shows no acute abnormality. CMP shows no acute abnormality. Magnesium is 2.3. CK is 222. Troponin is 0.04. BNP is 37. Coags show no acute abnormality. UA was unable to be obtained. CT of the brain shows no acute intracranial abnormality demonstrated. Old left occipital lobe infarct.. MRI of the brain shows no acute intracranial abnormality demonstrated; Old left occipital lobe infarct and mild to moderate, chronic white matter changes. CT abdomen/pelvis unremarkable bowel gas pattern; Unremarkable gallbladder; Stable calcified granuloma in the right lower lobe and partially calcified soft tissue nodule in the left lower lobe not previously visualized. 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 Patient recently had cardiac catheterization on August 29, 2017 which showed mild coronary artery disease. She has no chest pain. The patient walked without difficulty to the bathroom. She was steady on her feet. However, she missed getting a sample of her urine. I discussed doing a straight catheterization with the patient to rule out a urinary tract infection , but she declines and states she would like to go home. Workup is reassuring. The patient states all her symptoms are resolved. She will be discharged prescription for Zofran for nausea. She is to follow primary care physician. She is return here if she has any worsening or recurrent symptoms. I discussed the case by attending physician, Dr. Thompson who agrees with plan and disposition. The patient was discharged in stable condition with instructions, including return instructions and follow up instructions. Diagnosis Primary Impression: Dizziness Referrals: Primary Care Physician 2 days Patient Instructions: Dizziness (ED), General Instructions Additional Instructions: Take meclizine as directed as needed for dizziness. Take Zofran as directed as needed for nausea/vomiting. Follow-up with your primary care physician. Return to the emergency department for any acute worsening of symptoms. Med/Other Pt SpecificInfo: Prescription(s) given Scripts Meclizine (Meclizine) 25 Mg Tab 25 MG PO TID Y for VERTIGO, #20 TAB 0 Refills Prov: Olivia Burrows 11/17/17 Ondansetron Odt (Ondansetron Odt) 4 Mg Tab 4 MG SL Q6HR Y for Nausea/Vomiting, #16 TAB 0 Refills Prov: Olivia Burrows 11/17/17 Disposition: 01 DISCHARGE HOME Condition: Stable Olivia Burrows Nov 17, 2017 16:35
[2017-11-17] MEDS ORDERED: MECLIZINE HCL 25 MG TAB PO ONE (16:45)
--- NOTE | 2017-11-17 17:05 | RADRPT ---
EXAM DATE/TIME: 11/17/2017 16:32 [facility] COMPARISON: Report only. MRI BRAIN W & W/O CONTRAST, April 09, 2014, 9:02. INDICATIONS : Headache and dizziness. RADIATION DOSE: 52.13 CTDIvol (mGy) MEDICAL HISTORY : Stroke. Cardiovascular disease Hypertension. SURGICAL HISTORY : Tubal ligation. ENCOUNTER: Initial ACUITY: 1 day PAIN SCALE: 5/10 LOCATION: Bilateral occipital TECHNIQUE: Multiple contiguous axial images were obtained of the head. Using automated exposure control and adj ustment of the mA and/or kV according to patient size, radiation dose was kept as low as reasonably a chievable to obtain optimal diagnostic quality images. DICOM format image data is available electro nically for review and comparison. FINDINGS: CEREBRUM: The ventricles are normal for age. No evidence of midline shift, mass lesion, hemorrhage or acute in farction. No extra-axial fluid collections are seen. There is an old left occipital lobe infarct. POSTERIOR FOSSA: The cerebellum and brainstem are intact. The 4th ventricle is midline. The cerebellopontine angle i s unremarkable. EXTRACRANIAL: The visualized portion of the orbits is intact. SKULL: The calvaria is intact. No evidence of skull fracture. CONCLUSION: No acute intracranial abnormality demonstrated. Old left occipital lobe infarct. Kendall De La Rosa MD on November 17, 2017 at 17:01 Board Certified Radiologist. This report was verified electronically.
--- NOTE | 2017-11-17 17:05 | PD ---
Physical Exam Narrative I, Dr. Thompson, have reviewed the advance practice practitioner's documentation and am in agreement, met with the patient face to face, made the diagnosis, and the medical decision making was done by me. *My assessment and Findings: Patient is a 66 year old female who comes in complaining of dizziness and headache. She has had nausea vomiting for a few days, which was getting better, until she ate lasagna yesterday. Exam shows no acute neurologic abnormalities. Data Data Last Documented VS Vital Signs Date Time Temp Pulse Resp B/P (MAP) Pulse Ox O2 Delivery O2 Flow Rate FiO2 11/17/17 20:44 11/17/17 19:25 84 16 99 Room Air 11/17/17 15:04 98.5 Orders Orders Electrocardiogram (11/17/17 16:18) Complete Blood Count With Diff (11/17/17 16:18) Comprehensive Metabolic Panel (11/17/17 16:18) Magnesium (Mg) (11/17/17 16:18) B-Type Natriuretic Peptide (11/17/17 16:18) Ckmb (Isoenzyme) Profile (11/17/17 16:18) Troponin I (11/17/17 16:18) Act Partial Throm Time (Ptt) (11/17/17 16:18) Prothrombin Time / Inr (Pt) (11/17/17 16:18) Ct Brain W/O Iv Contrast(Rout) (11/17/17 16:18) Ecg Monitoring (11/17/17 16:18) Iv Access Insert/Monitor (11/17/17 16:18) Oximetry (11/17/17 16:18) Ondansetron Inj (Zofran Inj) (11/17/17 16:30) Sodium Chloride 0.9% Flush (Ns Flush) (11/17/17 16:30) Mri Brain W/O Contrast (11/17/17 ) Meclizine (Antivert) (11/17/17 16:45) Ct Abd/Pel W/O Iv Contrast (11/17/17 ) CKMB (11/17/17 17:20) CKMB% (11/17/17 17:20) Cath For Specimen (11/17/17 20:19) Ed Discharge Order (11/17/17 20:40) Labs Laboratory Tests Test 11/17/17 17:20 White Blood Count 10.1 TH/MM3 Red Blood Count 4.40 MIL/MM3 Hemoglobin 12.7 GM/DL Hematocrit 38.5 % Mean Corpuscular Volume 87.6 FL Mean Corpuscular Hemoglobin 28.8 PG Mean Corpuscular Hemoglobin Concent 32.9 % Red Cell Distribution Width 14.4 % Platelet Count 323 TH/MM3 Mean Platelet Volume 8.0 FL Neutrophils (%) (Auto) 74.7 % Lymphocytes (%) (Auto) 18.1 % Monocytes (%) (Auto) 6.0 % Eosinophils (%) (Auto) 0.5 % Basophils (%) (Auto) 0.7 % Neutrophils # (Auto) 7.5 TH/MM3 Lymphocytes # (Auto) 1.8 TH/MM3 Monocytes # (Auto) 0.6 TH/MM3 Eosinophils # (Auto) 0.1 TH/MM3 Basophils # (Auto) 0.1 TH/MM3 CBC Comment DIFF FINAL Differential Comment Prothrombin Time 10.7 SEC Prothromb Time International Ratio 1.1 RATIO Activated Partial Thromboplast Time 32.5 SEC Blood Urea Nitrogen 13 MG/DL Creatinine 0.93 MG/DL Random Glucose 112 MG/DL Total Protein 8.6 GM/DL Albumin 3.6 GM/DL Calcium Level 9.7 MG/DL Magnesium Level 2.3 MG/DL Alkaline Phosphatase 105 U/L Aspartate Amino Transf (AST/SGOT) 36 U/L Alanine Aminotransferase (ALT/SGPT) 27 U/L Total Bilirubin 0.4 MG/DL Sodium Level 138 MEQ/L Potassium Level 4.8 MEQ/L Chloride Level 102 MEQ/L Carbon Dioxide Level 30.7 MEQ/L Anion Gap 5 MEQ/L Estimat Glomerular Filtration Rate 73 ML/MIN Total Creatine Kinase 222 U/L Creatine Kinase MB 5.7 NG/ML Creatine Kinase MB % 2.6 % Troponin I 0.04 NG/ML B-Type Natriuretic Peptide 37 PG/ML [facility] Supervised Visit with JERALD: Yes Narrative Course CT head and MRI of the head shows no acute abnormalities. Patient is feeling better. She is advised to follow up with her PCP. Advised to return to the ED as needed for any worsening symptoms. Scripts Meclizine (Meclizine) 25 Mg Tab 25 MG PO TID Y for VERTIGO, #20 TAB 0 Refills Prov: Olivia Burrows 11/17/17 Ondansetron Odt (Ondansetron Odt) 4 Mg Tab 4 MG SL Q6HR Y for Nausea/Vomiting, #16 TAB 0 Refills Prov: Olivia Burrows 11/17/17 Melissa Thompson MD Nov 17, 2017 17:05
[2017-11-17 17:33] LABS: AUTOMATED NEUTROPHIL # 7.5 TH/MM3 (1.8-7.7); BASOPHIL # 0.1 TH/MM3 (0-0.2); BASOPHIL % 0.7 % (0.0-2.0); EOSINOPHIL # 0.1 TH/MM3 (0-0.4); EOSINOPHIL % 0.5 % (0.0-4.0); HEMATOCRIT 38.5 % (35.0-46.0); HEMOGLOBIN 12.7 GM/DL (11.6-15.3); LYMPH % 18.1 % (9.0-44.0); LYMPHOCYTE # 1.8 TH/MM3 (1.0-4.8); MEAN CELL VOLUME 87.6 FL (80.0-100.0); MEAN CORPUSCULAR HEMOGLOBIN 28.8 PG (27.0-34.0); MEAN CORPUSCULAR HGB CONC 32.9 % (32.0-36.0); MONOCYTE # 0.6 TH/MM3 (0-0.9); NEUT % 74.7 % (16.0-70.0); PLATELET COUNT 323 TH/MM3 (150-450); RED CELL DISTRIBUTION WIDTH 14.4 % (11.6-17.2); WHITE BLOOD COUNT 10.1 TH/MM3 (4.0-11.0)
[2017-11-17 17:42] LABS: INTERNATIONAL NORMALIZED RATIO 1.1 RATIO; PROTHROMBIN TIME - PATIENT 10.7 SEC (9.8-11.6)
--- NOTE | 2017-11-17 18:22 | RADRPT ---
EXAM DATE/TIME: 11/17/2017 17:38 [facility] COMPARISON: CT BRAIN W/O CONTRAST, November 17, 2017, 16:32. INDICATIONS : Cephalgia. Dizziness. MEDICAL HISTORY : Diabetes mellitus type 2. Hypertension. Hypercholesterolemia. Gout. SURGICAL HISTORY : Tubal ligation. ENCOUNTER: Initial ACUITY: 1 day PAIN SCORE: 0/10 LOCATION: cranial TECHNIQUE: Multiplanar, multisequence MRI of the brain was performed without contrast. FINDINGS: CEREBRUM: The ventricles are normal for age. No evidence of midline shift, mass lesion, hemorrhage or acute in farction. No extraaxial fluid collections are seen. Incidentally seen empty sella. There is an old l eft occipital lobe infarct. WHITE MATTER: Mild to moderate scattered chronic flair signal abnormality seen in the periventricular white matter of both vertebral hemispheres. POSTERIOR FOSSA: The cerebellum and brainstem are intact. The 4th ventricle is midline. The cerebellopontine angle is unremarkable. The cerebellar tonsils are normal in position. DIFFUSION IMAGING: No focal areas of restricted diffusion are seen. No evidence of acute infarction. EXTRACRANIAL: The visualized portions of the orbits and paranasal sinuses are unremarkable. CONCLUSION: 1. No acute intracranial abnormality demonstrated. 2. Old left occipital lobe infarct and mild to moderate, chronic white matter changes. Kendall De La Rosa MD on November 17, 2017 at 18:17 Board Certified Radiologist. This report was verified electronically.
--- NOTE | 2017-11-17 18:24 | RADRPT ---
EXAM DATE/TIME: 11/17/2017 17:51 [facility] COMPARISON: CHEST PA & LAT, December 20, 2015, 10:27. CT ABDOMEN & PELVIS W/O CONTRAST, May 13, 2017, 12:21. INDICATIONS : Mid-abdomen pain upon palpation. ORAL CONTRAST: No oral contrast ingested. RADIATION DOSE: 10.69 CTDIvol (mGy) MEDICAL HISTORY : Diabetes mellitus type 2. Cardiovascular disease Hypertension. SURGICAL HISTORY : Tubal ligation. ENCOUNTER: Initial ACUITY: 1 day PAIN SCALE: 4/10 LOCATION: Bilateral mid-abdomen. TECHNIQUE: Volumetric scanning of the abdomen and pelvis was performed. Using automated exposure control and ad justment of the mA and/or kV according to patient size, radiation dose was kept as low as reasonably achievable to obtain optimal diagnostic quality images. DICOM format image data is available electro nically for review and comparison. FINDINGS: LOWER LUNGS: There is a stable calcified granuloma in the right lower lobe and partially calcified nodule in the l eft lower lobe. This area was not visualized on the prior study. LIVER: Homogeneous density without lesion. There is no dilation of the biliary tree. No calcified gallston es. The gallbladder is unremarkable. SPLEEN: Normal size without lesion. PANCREAS: Within normal limits. KIDNEYS: Normal in size and shape. There is no mass, stone, or hydronephrosis. ADRENAL GLANDS: Within normal limits. VASCULAR: There is no aortic aneurysm. BOWEL/MESENTERY: The stomach, small bowel, and colon demonstrate no acute abnormality. There is no free intraperitone al air or fluid. There is a normal appendix. ABDOMINAL WALL: Within normal limits. RETROPERITONEUM: There is no lymphadenopathy. BLADDER: No wall thickening or mass. REPRODUCTIVE: Within normal limits. INGUINAL: There is no lymphadenopathy or hernia. MUSCULOSKELETAL: Within normal limits for patient age. CONCLUSION: 1. Unremarkable bowel gas pattern. 2. Unremarkable gallbladder. 3. Stable calcified granuloma in the right lower lobe and partially calcified soft tissue nodule in t he left lower lobe not previously visualized. 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 Scottie Stevens MD on November 17, 2017 at 18:17 Board Certified Radiologist. This report was verified electronically.
[2017-11-17 18:27] LABS: ALBUMIN 3.6 GM/DL (3.4-5.0); ALKALINE PHOSPHATASE 105 U/L (45-117); ALT (GPT) 27 U/L (10-53); AST (GOT) 36 U/L (15-37); BICARBONATE 30.7 MEQ/L (21.0-32.0); BLOOD UREA NITROGEN 13 MG/DL (7-18); CALCIUM 9.7 MG/DL (8.5-10.1); CHLORIDE 102 MEQ/L (98-107); CREATININE 0.93 MG/DL (0.50-1.00); GLOMERULAR FILTRATION RATE 73 ML/MIN (>89); GLUCOSE,RANDOM 112 MG/DL (74-106); MAGNESIUM 2.3 MG/DL (1.5-2.5); SODIUM (NA) 138 MEQ/L (136-145); TOTAL BILIRUBIN ADULT 0.4 MG/DL (0.2-1.0); TOTAL PROTEIN 8.6 GM/DL (6.4-8.2); TROPONIN I 0.04 NG/ML (0.02-0.05)
[2017-11-17 19:25] VITALS: BP 118/58; PULSE 84; RESP 16; O2SAT 99
[2017-11-17] MEDS ORDERED: MECL-62 PO (20:39)
[2017-11-17] MEDS ORDERED: ONDA4TAB7 SL (20:39)
--- NOTE | 2017-11-18 17:20 | EKG ---
Date Performed: 11/17/2017 Time Performed: 19:13:18 PTAGE: 66 years EKG: Sinus rhythm LEFT VENTRICULAR HYPERTROPHY AND ST-T CHANGE ABNORMAL ECG PREVIOUS TRACING : 08/28/2017 21.51 Since previous tracing, no significant change noted DOCTOR: Gabriele Reeves Interpretating Date/Time 11/18/2017 17:19:07
== END 2017-11-17 20:56 | disposition home or self-care (01) ==
LOC: NEPC 15:00
DX: R42 Dizziness and giddiness (principal); R94.31 Abnormal electrocardiogram [ECG] [EKG]; I51.7 Cardiomegaly; I25.10 Atherosclerotic heart disease of native coronary artery without angina pectoris; E78.00 Pure hypercholesterolemia, unspecified; I10 Essential (primary) hypertension; E11.9 Type 2 diabetes mellitus without complications; Z86.73 Personal history of transient ischemic attack (TIA), and cerebral infarction without residual deficits; Z79.84 Long term (current) use of oral hypoglycemic drugs
CPT/HCPCS: 70450; 70551; 74176; 80053; 82550; 82552; 83735; 83880; 84484; 85025; 85610; 85730; 93005; 96374; 99285; J2405